=== PATIENT | male | born 1990 | race Caucasian/White ===

== ENCOUNTER 2017-07-15 18:04 | Observation (INO) | payer OTHER ==
[~2017-07-15] VITALS: Ht 175.3 cm; Wt 111.4 kg
[~2017-07-15 18:04] MED LIST: BUSP15TA PO; Benztropine PO; CYCL10TA PO; DEPA500T3 PO; IBUP-232 PO; QUET1TAB8 PO; RISP37.5P IM; TOPI100 PO; TRAZ50TA12 PO
[2017-07-15 18:05] VITALS: BP 121/75; PULSE 67; RESP 16; TEMP 98.5; O2SAT 99
[2017-07-15 18:47] LABS: AUTOMATED NEUTROPHIL # 4.1 TH/MM3 (1.8-7.7); BASOPHIL % 0.5 % (0.0-2.0); EOSINOPHIL # 0.1 TH/MM3 (0-0.4); EOSINOPHIL % 1.9 % (0.0-4.0); HEMATOCRIT 39.4 % (39.0-51.0); HEMOGLOBIN 13.6 GM/DL (13.0-17.0); LYMPHOCYTE # 1.9 TH/MM3 (1.0-4.8); MEAN CELL VOLUME 90.3 FL (80.0-100.0); MEAN CORPUSCULAR HEMOGLOBIN 31.2 PG (27.0-34.0); MEAN CORPUSCULAR HGB CONC 34.5 % (32.0-36.0); MEAN PLATELET VOLUME 7.9 FL (7.0-11.0); MONO % 5.7 % (0.0-8.0); MONOCYTE # 0.4 TH/MM3 (0-0.9); NEUT % 62.9 % (16.0-70.0); PLATELET COUNT 190 TH/MM3 (150-450); RED BLOOD COUNT 4.37 MIL/MM3 (4.50-5.90); RED CELL DISTRIBUTION WIDTH 14.1 % (11.6-17.2); WHITE BLOOD COUNT 6.6 TH/MM3 (4.0-11.0)
[2017-07-15 18:53] LABS: PROTHROMBIN TIME - PATIENT 10.3 SEC (9.8-11.6)
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
--- NOTE | 2017-07-15 18:59 | RADRPT ---
EXAM DATE/TIME: 07/15/2017 18:31 [facility] COMPARISON: No previous studies available for comparison. INDICATIONS : Dizziness with multiple falls for two weeks. RADIATION DOSE: 30.78 CTDIvol (mGy) MEDICAL HISTORY : Seizures.traumatic brain injury SURGICAL HISTORY : Craniotomy. ENCOUNTER: Initial ACUITY: 2 weeks PAIN SCALE: 4/10 LOCATION: Bilateral neck TECHNIQUE: Volumetric scanning of the cervical spine was performed. Multiplanar reconstructions in the sagittal, coronal and oblique axial planes were performed. Using automated exposure control and adjustment o f the mA and/or kV according to patient size, radiation dose was kept as low as reasonably achievable to obtain optimal diagnostic quality images. DICOM format image data is available electronically f or review and comparison. FINDINGS: VERTEBRAE: Normal vertebral body height. ALIGNMENT: No evidence of subluxation. C2-C3: The bony spinal canal is normal in size. No evidence of disc bulge or herniation. The neural forami na are bilaterally patent. C3-C4: The bony spinal canal is normal in size. No evidence of disc bulge or herniation. The neural forami na are bilaterally patent. C4-C5: The bony spinal canal is normal in size. No evidence of disc bulge or herniation. The neural forami na are bilaterally patent. C5-C6: The bony spinal canal is normal in size. No evidence of disc bulge or herniation. The neural forami na are bilaterally patent. C6-C7: The bony spinal canal is normal in size. No evidence of disc bulge or herniation. The neural forami na are bilaterally patent. C7-T1: The bony spinal canal is normal in size. No evidence of disc bulge or herniation. The neural forami na are bilaterally patent. CONCLUSION: No acute disease. Coleman Eastman Jr., MD on July 15, 2017 at 18:54 Board Certified Radiologist. This report was verified electronically.
[2017-07-15 19:11] LABS: ALBUMIN 4.1 GM/DL (3.4-5.0); ALT (GPT) 84 U/L (12-78); AST (GOT) 30 U/L (15-37); BICARBONATE 32.6 MEQ/L (21.0-32.0); BLOOD UREA NITROGEN 14 MG/DL (7-18); CALCIUM 8.5 MG/DL (8.5-10.1); CHLORIDE 104 MEQ/L (98-107); CREATININE 0.96 MG/DL (0.60-1.30); GLOMERULAR FILTRATION RATE 93 ML/MIN (>89); GLUCOSE,RANDOM 99 MG/DL (74-106); SODIUM (NA) 141 MEQ/L (136-145)
[2017-07-15 19:16] LABS: ALKALINE PHOSPHATASE 47 U/L (45-117); TOTAL BILIRUBIN ADULT 0.3 MG/DL (0.2-1.0); TOTAL PROTEIN 7.5 GM/DL (6.4-8.2); TROPONIN I LESS THAN 0.02 NG/ML (0.02-0.05)
[2017-07-15 19:20] VITALS: BP 102/56; PULSE 63; RESP 18; O2SAT 100
--- NOTE | 2017-07-15 19:22 | RADRPT ---
EXAM DATE/TIME: 07/15/2017 18:38 [facility] COMPARISON: CHEST PA & LAT, August 27, 2014, 16:22. INDICATIONS : Syncope. Patient is very dizzy. MEDICAL HISTORY : Seizures. Hypertension. SURGICAL HISTORY : Craniotomy. Shunt. ENCOUNTER: Initial ACUITY: 1 day PAIN SCORE: Non-responsive. LOCATION: Bilateral chest FINDINGS: PA and lateral views of the chest demonstrate the lungs to be symmetrically aerated without evidence of mass, infiltrate or effusion. The cardiomediastinal contours are unremarkable. Osseous structure s are intact. A catheter likely related to a POULTRY INSEMINATOR shunt overlies the right chest. CONCLUSION: No acute disease. Coleman Eastman Jr., MD on July 15, 2017 at 19:19 Board Certified Radiologist. This report was verified electronically.
--- NOTE | 2017-07-15 19:24 | RADRPT ---
EXAM DATE/TIME: 07/15/2017 18:42 [facility] COMPARISON: SHUNT SERIES, May 29, 2016, 19:09. INDICATIONS : Dizziness. MEDICAL HISTORY : Seizures. Hypertension. SURGICAL HISTORY : Craniotomy. Shunt. ENCOUNTER: Initial ACUITY: 1 day PAIN SCORE: Non-responsive. LOCATION: Body. FINDINGS: Radiograph of the skull, neck, chest and abdomen performed to evaluate shunt patency. The shunt cath eter is seen entering the right frontoparietal region with its tip in the midline The catheter is continuous in its course terminating in the right lateral abdomen No catheter disrupt ion is identified. The visualized heart, lungs and abdominal structures are intact. CONCLUSION: Intact shunt. Coleman Eastman Jr., MD on July 15, 2017 at 19:19 Board Certified Radiologist. This report was verified electronically.
[2017-07-15] MEDS ORDERED: BENZ0.5T PO (19:26)
[2017-07-15] MEDS ORDERED: PALI1TAB3 PO (19:26)
[2017-07-15] MEDS ORDERED: NOVOLOGP2 SQ (19:26)
[2017-07-15] MEDS ORDERED: LEVEMIR SQ (19:26)
[2017-07-15] MEDS ORDERED: IOHEXOL 300 MG/ML 50 ML BTL (for RAD DIAG) OTHER ONE (20:22)
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
[2017-07-15] MEDS ORDERED: SODIUM CHLORIDE 0.9% FLUSH 10 ML FLUSH IV FLUSH PRN (20:30)
[2017-07-15] MEDS ORDERED: NALOXONE HCL 0.4 MG/ML AMP IV PUSH PRN (20:30)
[2017-07-15] MEDS: SODIUM CHLORIDE 0.9% FLUSH 10 ML FLUSH IV FLUSH SCH (21:00)
[2017-07-15 21:46] VITALS: BP_SYST 119; BP_SYST 127; BP_SYST 128; BP_DIAS 70; BP_DIAS 81; BP_DIAS 89; RESP 18
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
[2017-07-15] MEDS: DIVALPROEX SODIUM E.R. 500 MG TAB PO SCH (23:23)
[2017-07-15] MEDS: BENZTROPINE MESYLATE 1 MG TAB PO SCH (23:23)
[2017-07-16] VITALS (8 sets, daily range): BP systolic 116–133; BP diastolic 66–83; PULSE 61–78; RESP 15–22; TEMP 96.4–97.4; O2SAT 96–100
[2017-07-16 01:35] LABS: BILIRUBIN, URINE NEG (NEG); BLOOD, URINE NEG (NEG); GLUCOSE,URINE NEG (NEG); KETONE, URINE NEG (NEG); MUCUS URINE FEW /lpf (OCC); NITRITE,URINE NEG (NEG); PH, URINE 6.5 (5.0-8.5); SQUAMOUS EPITHELIAL CELL URINE <1 /hpf (0-5); URINE COLOR YELLOW (YELLW/STRAW); URINE LEUKOCYTE ESTERASE NEG (NEG)
[2017-07-16 06:42] LABS: AUTOMATED NEUTROPHIL # 3.3 TH/MM3 (1.8-7.7); BASOPHIL % 0.7 % (0.0-2.0); BICARBONATE 26.9 MEQ/L (21.0-32.0); CALCIUM 8.4 MG/DL (8.5-10.1); CREATININE 0.82 MG/DL (0.60-1.30); EOSINOPHIL # 0.2 TH/MM3 (0-0.4); EOSINOPHIL % 3.3 % (0.0-4.0); HEMATOCRIT 38.6 % (39.0-51.0); HEMOGLOBIN 13.2 GM/DL (13.0-17.0); LYMPH % 35.9 % (9.0-44.0); LYMPHOCYTE # 2.3 TH/MM3 (1.0-4.8); MEAN CELL VOLUME 90.1 FL (80.0-100.0); MEAN CORPUSCULAR HEMOGLOBIN 30.8 PG (27.0-34.0); MEAN CORPUSCULAR HGB CONC 34.2 % (32.0-36.0); MEAN PLATELET VOLUME 7.8 FL (7.0-11.0); MONO % 7.4 % (0.0-8.0); MONOCYTE # 0.5 TH/MM3 (0-0.9); NEUT % 52.7 % (16.0-70.0); PLATELET COUNT 167 TH/MM3 (150-450); RED BLOOD COUNT 4.28 MIL/MM3 (4.50-5.90); RED CELL DISTRIBUTION WIDTH 14.2 % (11.6-17.2); WHITE BLOOD COUNT 6.3 TH/MM3 (4.0-11.0)
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
--- NOTE | 2017-07-16 10:12 | RADRPT ---
EXAM DATE/TIME: 07/16/2017 09:17 [facility] COMPARISON: CT BRAIN W/O CONTRAST, July 15, 2017, 18:31. INDICATIONS : Dizziness. Frequent falls. CONTRAST: 20 cc Omniscan (gadodiamide) IV MEDICAL HISTORY : Traumatic brain injury. SURGICAL HISTORY : Craniotomy. Codman shunt placement. ENCOUNTER: Initial ACUITY: 2 day PAIN SCORE: 0/10 LOCATION: head TECHNIQUE: Multiplanar, multisequence MRI of the brain was performed both prior to and following the administrat ion of paramagnetic contrast. FINDINGS: There is noted to be again a left craniotomy and a ventriculostomy in place via posterior right front al region. There is no evidence hydrocephalus. No evidence intracranial hemorrhage, extracerebral def ect mass or intracranial hemorrhage and no evidence of acute infarct. No diffusion abnormality is ronald reciated. Encephalomalacia is noted in the left hemisphere which is correlative with findings on rece nt CT scan as well as a small area in the anterior right parietal frontal region where in the ventric ulostomy catheter projects into the ventricle. Air-fluid level noted in the left maxillary sinus CONCLUSION: No acute intracranial abnormality or process. Air-fluid level noted in the left maxillary sinus consistent w ith sinusitis. Right ventriculostomy catheter in place without evidence of hydrocephalus. Prior remot e left craniotomy with encephalomalacia in the underlying left hemisphere Otis Eric MD on July 16, 2017 at 10:00 Board Certified Radiologist. This report was verified electronically.
[2017-07-16] MEDS: BENZTROPINE MESYLATE 1 MG TAB PO SCH ×3 (10:16→22:01)
[2017-07-16] MEDS: SODIUM CHLORIDE 0.9% FLUSH 10 ML FLUSH IV FLUSH SCH ×2 (10:17→21:47)
--- NOTE | 2017-07-16 11:17 | PD.CONS ---
(Foster Gomes MD) HPI Consult Requested By Primary Care Physician No Primary Care Physician (Foster Gomes MD) Service NRS History of Present Illness Mr. Burks is a 26-year-old male who comes today for gait instability and recurrent falls. The patient has a prior history of traumatic brain injury, hydrocephalus with a ventriculoperitoneal shunt. His shunt was last adjusted to 120 mm Hg in 2014. He presents to [facility] due to gait instability and recurrent falls. The patient reports his balance is not well. He reports of mild stable headaches. 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 A CT head shows no acute intracranial pathologies, no ventriculomegaly. MRI brain without evidence of acute infarction, chronic left encephalomalacia. A shunt study shows intact shunt. Neurosurgical evaluation requested. (Whitney Griffith) Review of Systems Constitutional: DENIES: Fever, Chills Ears, nose, mouth, throat: DENIES: Vertigo Respiratory: DENIES: Apneas Cardiovascular: DENIES: Chest pain Gastrointestinal: DENIES: Nausea, Vomiting Musculoskeletal: DENIES: Neck pain Neurologic: COMPLAINS OF: Abnormal gait, Headache (minimal), Poor Balance, DENIES: Seizures (Whitney Griffith) Past Family Social History Allergies: Coded Allergies: No Known Allergies (Verified , 12/04/16) Per [facility] RN. Physical Exam Vital Signs Vital Signs Date Time Temp Pulse Resp B/P (MAP) Pulse Ox O2 Delivery O2 Flow Rate FiO2 07/16/17 10:40 63 15 117/66 (83) 98 Room Air 07/16/17 06:28 65 18 126/76 (93) 100 Room Air 07/16/17 01:13 64 18 129/83 (98) 96 Room Air 07/15/17 21:46 62 18 119/70 (86) 80 18 128/81 (97) 79 18 127/89 (102) 07/15/17 19:20 63 18 102/56 (71) 100 Room Air 07/15/17 19:11 61 18 100 07/15/17 18:05 98.5 67 16 121/75 (90) 99 Physical Exam Mr. Burks is comfortable, in no obvious distress during examination. Neuro: Awake. Speech is slow but clear and fluent. Can follow single and multi- step commands without apraxia. Cranial nerve examination demonstrates the 2-3 mm pupils equal, round, and reactive to light. Right third nerve palsy. Facial motor and sensory function are normal and symmetrical. Gross hearing is intact, bilaterally, to finger rub. The uvula is midline and elevates symmetrically with the soft palate. Sternocleidomastoid and deltoid muscles have normal and symmetrical strength. HENT: Right GREEN TIRE INSPECTOR shunt palpated, intact with good bubble rebound. Hearing intact to finger rub bilaterally. Eyes: Pupils equal round. Nonicteric sclera. Neck: soft, supple, normal range of motion without pain Extremities No peripheral edema. 5/5 in all muscle groups of both upper extremities including deltoid, biceps, triceps and truck driver heavy. In the lower extremities, strength is 5/5 in both iliopsoas, quadriceps, hamstrings, tibialis anterior, gastrocnemius, and extensor hallucis longus. Sensory examination is intact pinprick in both the upper and lower extremities Deep tendon reflexes are 1+ biceps, triceps, and brachioradialis, bilaterally, in the upper extremities. In the lower extremities, the patellar and Achilles are 1+, bilaterally. There is a bilateral plantar flexion response. Hoffmanns sign is negative. There is no clonus. Cerebellar: grossly intact finger to nose bilaterally Lungs: clear, nonlabored breathing, no wheezing Heart: S1, S2 Skin: warm and dry, no cyanosis. Laboratory Laboratory Tests Test 07/15/17 18:11 07/15/17 18:20 07/15/17 19:28 07/16/17 06:06 Urine Color YELLOW Urine Turbidity CLEAR Urine pH 6.5 Urine Specific [place] 1.029 Urine Protein TRACE Urine Glucose (UA) NEG Urine Ketones NEG Urine Occult Blood NEG Urine Nitrite NEG Urine Bilirubin NEG Urine Urobilinogen LESS THAN 2.0 Urine Leukocyte Esterase NEG Urine RBC 2 Urine WBC 1 Urine Squamous Epithelial Cells <1 Urine Mucus FEW Microscopic Urinalysis Comment CULT NOT INDICATED White Blood Count 6.6 6.3 Red Blood Count 4.37 4.28 Hemoglobin 13.6 13.2 Hematocrit 39.4 38.6 Mean Corpuscular Volume 90.3 90.1 Mean Corpuscular Hemoglobin 31.2 30.8 Mean Corpuscular Hemoglobin Concent 34.5 34.2 Red Cell Distribution Width 14.1 14.2 Platelet Count 190 167 Mean Platelet Volume 7.9 7.8 Neutrophils (%) (Auto) 62.9 52.7 Lymphocytes (%) (Auto) 29.0 35.9 Monocytes (%) (Auto) 5.7 7.4 Eosinophils (%) (Auto) 1.9 3.3 Basophils (%) (Auto) 0.5 0.7 Neutrophils # (Auto) 4.1 3.3 Lymphocytes # (Auto) 1.9 2.3 Monocytes # (Auto) 0.4 0.5 Eosinophils # (Auto) 0.1 0.2 Basophils # (Auto) 0.0 0.0 CBC Comment DIFF FINAL DIFF FINAL Differential Comment Prothrombin Time 10.3 Prothromb Time International Ratio 1.0 Activated Partial Thromboplast Time 25.2 Blood Urea Nitrogen 14 14 Creatinine 0.96 0.82 Random Glucose 99 95 Total Protein 7.5 Albumin 4.1 Calcium Level 8.5 8.4 Magnesium Level 2.0 Alkaline Phosphatase 47 Aspartate Amino Transf (AST/SGOT) 30 Alanine Aminotransferase (ALT/SGPT) 84 Total Bilirubin 0.3 Sodium Level 141 139 Potassium Level 3.8 3.6 Chloride Level 104 106 Carbon Dioxide Level 32.6 26.9 Anion Gap 4 6 Estimat Glomerular Filtration Rate 93 112 Total Creatine Kinase 185 Creatine Kinase MB 1.9 Troponin I LESS THAN 0.02 Urine Opiates Screen NEG Urine Barbiturates Screen NEG Urine Amphetamines Screen NEG Urine Benzodiazepines Screen NEG Urine Cocaine Screen NEG Urine Cannabinoids Screen POS Erythrocyte Sedimentation Rate 14 Vitamin B12 Level 363 Thyroid Stimulating Hormone 3rd Gen 5.700 (Foster Gomes MD) Physical Exam General: Mr. Burks is comfortable, in no obvious distress during examination. Neuro: Awake. Speech is slow but clear and fluent. Slow but can follow single and multi-step commands. Cranial nerve examination demonstrates the 2-3 mm pupils equal, round, and reactive to light. Right third nerve palsy. Facial motor and sensory function are normal and symmetrical. Gross hearing is intact, bilaterally, to finger rub. The uvula is midline and elevates symmetrically with the soft palate. Sternocleidomastoid and deltoid muscles have normal and symmetrical strength. HENT: Right GREEN TIRE INSPECTOR shunt palpated, intact with good bubble rebound. Hearing intact to finger rub bilaterally. Eyes: Pupils equal round. Nonicteric sclera. Neck: soft, supple, normal range of motion without pain Extremities No peripheral edema. 4 to 5/5 deltoid, biceps, triceps and truck driver heavy. In the lower extremities, strength is 4 to 5/5 in both iliopsoas, quadriceps, hamstrings, tibialis anterior, gastrocnemius. Sensory examination is intact light touch in both the upper and lower extremities Deep tendon reflexes are 1+ biceps, triceps, and brachioradialis, bilaterally, in the upper extremities. In the lower extremities, the patellar and Achilles are 1+, bilaterally. There is a bilateral plantar flexion response. Hoffmanns sign is negative. There is no clonus. Cerebellar: grossly intact finger to nose bilaterally Lungs: clear, nonlabored breathing, no wheezing Heart: S1, S2 Skin: warm and dry, no cyanosis. (Whitney Griffith) Result Diagram: 07/16/17 0606 07/16/17 0606 Imaging Last 48 hours Impressions Shunt Study 07/16/17 0000 Signed Impressions: Service Date/Time: Sunday, July 16, 2017 15:09 - CONCLUSION: 1. The shunt appears patent proximally. There was passage of contrast through the valve and into the distal tubing as well suggesting distal patency. Joey Zuñiga MD Brain MRI 07/16/17 0000 Signed Impressions: Service Date/Time: Sunday, July 16, 2017 09:17 - CONCLUSION: No acute intracranial abnormality or process. Air-fluid level noted in the left maxillary sinus consistent with sinusitis. Right ventriculostomy catheter in place without evidence of hydrocephalus. Prior remote left craniotomy with encephalomalacia in the underlying left hemisphere Otis Eric MD Head CT 07/15/171810 Signed Impressions: Service Date/Time: Saturday, July 15, 2017 18:31 - CONCLUSION: 1. No acute intracranial abnormality. 2. Prior craniotomy with underlying encephalomalacia on the left. This is stable. 3. Ventriculostomy without hydrocephalus. 4. Acute left maxillary sinus disease. Coleman Eastman Jr., MD Chest X-Ray 07/15/171810 Signed Impressions: Service Date/Time: Saturday, July 15, 2017 18:38 - CONCLUSION: No acute disease. Coleman Eastman Jr., MD Cervical Spine CT 07/15/171810 Signed Impressions: Service Date/Time: Saturday, July 15, 2017 18:31 - CONCLUSION: No acute disease. Coleman Eastman Jr., MD Shunt Study (Imaging) 07/15/17 0000 Signed Impressions: Service Date/Time: Saturday, July 15, 2017 18:42 - CONCLUSION: Intact shunt. Coleman Eastman Jr., MD (Foster Gomes MD) Imaging Last Impressions Brain MRI 07/16/17 0000 Signed Impressions: Service Date/Time: Sunday, July 16, 2017 09:17 - CONCLUSION: No acute intracranial abnormality or process. Air-fluid level noted in the left maxillary sinus consistent with sinusitis. Right ventriculostomy catheter in place without evidence of hydrocephalus. Prior remote left craniotomy with encephalomalacia in the underlying left hemisphere Otis Eric MD Head CT 07/15/171810 Signed Impressions: Service Date/Time: Saturday, July 15, 2017 18:31 - CONCLUSION: 1. No acute intracranial abnormality. 2. Prior craniotomy with underlying encephalomalacia on the left. This is stable. 3. Ventriculostomy without hydrocephalus. 4. Acute left maxillary sinus disease. Coleman Eastman Jr., MD Chest X-Ray 07/15/171810 Signed Impressions: Service Date/Time: Saturday, July 15, 2017 18:38 - CONCLUSION: No acute disease. Coleman Eastman Jr., MD Cervical Spine CT 07/15/171810 Signed Impressions: Service Date/Time: Saturday, July 15, 2017 18:31 - CONCLUSION: No acute disease. Coleman Eastman Jr., MD Shunt Study (Imaging) 07/15/17 0000 Signed Impressions: Service Date/Time: Saturday, July 15, 2017 18:42 - CONCLUSION: Intact shunt. Coleman Eastman Jr., MD (Whitney Griffith) Attending Statement I reviewed his clinical and radiological studies. I recommend to perform a shuntogram, in procedures with injections of contrast into the ventricular system, to determine whether the shunt is patent. I would defer further recommendations to upon completion of his workup The exam, history, and the medical decision-making described in the above note were completed with the assistance of the mid-level provider. I reviewed and agree with the findings presented. I attest that I had a [id number] encounter with the patient on the same day, and personally performed and documented my assessment and findings in the medical record. (Foster Gomes MD) Using a [employer], the shunt was reprogrammed as follows: Ultrasound gel was placed over the valve and the transfuser was calibrated at a pressure of 110 mm/H20. The shunt was then reprogrammed and a visual and audible sound confirmed the new settings. The patient tolerated the procedure well without complication (Whitney Griffith) Foster Gomes MD Jul 16, 2017 11:17 Whitney Griffith Jul 16, 2017 13:22
--- NOTE | 2017-07-16 14:43 | EKG ---
Date Performed: 07/15/2017 Time Performed: 18:22:58 PTAGE: 26 years EKG: Sinus rhythm POSSIBLE RIGHT VENTRICULAR CONDUCTION DELAY BORDERLINE ECG Since PREVIOUS TRACING , no significant change noted PREVIOUS TRACIN12/06/2016 07.49 DOCTOR: Jeanne Santiago Interpretating Date/Time 07/16/2017 14:43:30
--- NOTE | 2017-07-16 15:35 | PD.RAD ---
Post Procedure Progress Note Pre Procedure Diagnosis: (1) Traumatic brain injury (2) S/P EXECUTIVE STEWARD shunt Post Procedure Diagnosis: (1) S/P EXECUTIVE STEWARD shunt (2) Traumatic brain injury Procedure Date: Jul 16, 2017 Supervising Radiologist: Joey Zuñiga Estimated blood loss: None Anesthesia: Local Plan of Activity Patient to Unit: Nursing Unit Patient Condition: Fair Additional Comments: EXECUTIVE STEWARD shunt eval completed. Shunt is paten proximally. Contrast was evident flowing past the valve and into the proximal tubing indicating patency. Ventricles are small in size See PACS Report for procedural detail/treatment Joey Zuñiga MD Jul 16, 2017 15:34
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
--- NOTE | 2017-07-16 16:58 | HHI.PR ---
Subjective Remarks Patient in bed. Seen lunch time.He is eatign lunch without any trouble. no cp, sob n/v/d/c. no dysphagia. Denies headache. Fells much better . Says he wants to go home Objective Vitals Vital Signs Date Time Temp Pulse Resp B/P (MAP) Pulse Ox O2 Delivery O2 Flow Rate FiO2 07/16/17 16:00 96.4 74 18 116/75 (89) 99 07/16/17 12:40 97.1 61 18 118/73 (88) 98 07/16/17 12:15 07/16/17 10:40 63 15 117/66 (83) 98 Room Air 07/16/17 06:28 65 18 126/76 (93) 100 Room Air 07/16/17 01:13 64 18 129/83 (98) 96 Room Air 07/15/17 21:46 62 18 119/70 (86) 80 18 128/81 (97) 79 18 127/89 (102) 07/15/17 19:20 63 18 102/56 (71) 100 Room Air 07/15/17 19:11 61 18 100 07/15/17 18:05 98.5 67 16 121/75 (90) 99 Result Diagram: 07/16/17 0606 07/16/17 0606 Imaging Last Impressions Shunt Study 07/16/17 0000 Signed Impressions: Service Date/Time: Sunday, July 16, 2017 15:09 - CONCLUSION: 1. The shunt appears patent proximally. There was passage of contrast through the valve and into the distal tubing as well suggesting distal patency. Joey Zuñiga MD Brain MRI 07/16/17 0000 Signed Impressions: Service Date/Time: Sunday, July 16, 2017 09:17 - CONCLUSION: No acute intracranial abnormality or process. Air-fluid level noted in the left maxillary sinus consistent with sinusitis. Right ventriculostomy catheter in place without evidence of hydrocephalus. Prior remote left craniotomy with encephalomalacia in the underlying left hemisphere Otis Eric MD Head CT 07/15/17 1811 Signed Impressions: Service Date/Time: Saturday, July 15, 2017 18:31 - CONCLUSION: 1. No acute intracranial abnormality. 2. Prior craniotomy with underlying encephalomalacia on the left. This is stable. 3. Ventriculostomy without hydrocephalus. 4. Acute left maxillary sinus disease. Coleman Eastman Jr., MD Chest X-Ray 07/15/171810 Signed Impressions: Service Date/Time: Saturday, July 15, 2017 18:38 - CONCLUSION: No acute disease. Coleman Eastman Jr., MD Cervical Spine CT 07/15/171810 Signed Impressions: Service Date/Time: Saturday, July 15, 2017 18:31 - CONCLUSION: No acute disease. Coleman Eastman Jr., MD Shunt Study (Imaging) 07/15/17 0000 Signed Impressions: Service Date/Time: Saturday, July 15, 2017 18:42 - CONCLUSION: Intact shunt. Coleman Eastman Jr., MD Objective Remarks GENERAL: This is a well-nourished, well-developed patient, in no apparent distress. CARDIOVASCULAR: Regular rate and rhythm without murmurs, gallops, or rubs. RESPIRATORY: Clear to auscultation. Breath sounds equal bilaterally. No wheezes , rales, or rhonchi. GASTROINTESTINAL: Abdomen soft, non-tender, nondistended. No hepato-splenomegaly , or palpable masses. No guarding. MUSCULOSKELETAL: Extremities without clubbing, cyanosis, or edema. No joint tenderness, effusion, or edema noted. No calf tenderness. NEUROLOGICAL: Awake and alert. Right upper and lower extremity weaker 4/5. Normal speech. A/P Problem List: (1) Traumatic brain injury ICD Code: S06.9X9A - Unspecified intracranial injury with loss of consciousness of unspecified duration, initial encounter Status: Acute (2) Impaired gait ICD Code: R26.9 - Unspecified abnormalities of gait and mobility Status: Acute Assessment and Plan 26 y/o male with a history of TBI with shunt placement, DM (not currently taking medication) and schizophrenia was brought in my his mom for evaluation of falls. Unsteady gait, recent falls, history of TBI CT head reviewed and shows no acute abnormality, no hydrocephalus Shunt series reviewed and shows intact shunt -Consult neurology appreciate recommendations. Can follow up as OP with neurology further work up can be done as OP imaging. Also seen by neurosurgery, cleared patient for DC -Neuro checks -PT eval Diabetes, chronic -Accu checks -A1C pending . DVT prophylaxis: SCDs Discussed Condition With Patient, nurse Tree shun is patent. PT recommends Rehab. DC to SNF when arrangements done Discharge Planning DC to SNF in stable condition to follow up as OP with PCP and consultants. Meds per med reconciliations Activity ad mariela as tolerated. Diet healthy heart and diabetic diet Discharge time > 30 min Tamela Olson MD Jul 16, 2017 16:58
--- NOTE | 2017-07-16 17:03 | HHI.DS ---
Discharge Summary Admission Date Jul 15, 2017 at 20:21 Discharge Date: Jul 16, 2017 Admitting Diagnosis unsteady gait, TBI (1) Traumatic brain injury ICD Code: S06.9X9A - Unspecified intracranial injury with loss of consciousness of unspecified duration, initial encounter Status: Acute (2) Impaired gait ICD Code: R26.9 - Unspecified abnormalities of gait and mobility Status: Acute Procedures none Brief History - From Admission 26 y/o male with a history of TBI with shunt placement, DM (not currently taking medication) and schizophrenia was brought in my his mom for evaluation of falls. Patient is unable to provide all his history and time line of events but does state his mom can. Mom states in March he was treated at [facility] for schizophrenia and was placed on Depakote, trazodone and Benztropine. He has been taking his medications as directed but at the end of May Mom noticed he was falling at least once a day, and now recently it has been more frequent. He was taking Invega and just recently started it back one week ago, after not taking it for 3 weeks. Mom states despite taking it or not he still was falling and having trouble ambulating. He has to hang on to bergman when walking, and he will fall to the right side when sitting on the couch , and this is new as of May. She also states he is more drowsier than he normally is. He does not complain of any other symptoms besides headaches, but states they are not any worse then normal. He denies any chest pain, sob, fever or chills. She does state that he wonders outside and falls but she is unsure if he has hit his head before. He does not see a PCP, or neurologist due to insurance issues and finding a dr who takes the insurance. Dr Gomes is the DR. who placed his shunt in 2011. As of March, Mom has taken over as his patient care manager and would like to be called for all questions due to patients mentation. Beth Burks [phone] CBC/BMP: 07/16/17 0606 07/16/17 0606 Significant Findings Laboratory Tests Test 07/15/17 18:11 07/15/17 18:20 07/15/17 19:28 07/16/17 06:06 Urine Mucus FEW /lpf (OCC) Red Blood Count 4.37 MIL/MM3 (4.50-5.90) 4.28 MIL/MM3 (4.50-5.90) Alanine Aminotransferase (ALT/SGPT) 84 U/L (12-78) Carbon Dioxide Level 32.6 MEQ/L (21.0-32.0) Anion Gap 4 MEQ/L (5-15) Troponin I LESS THAN 0.02 NG/ML Urine Cannabinoids Screen POS (NEG) Hematocrit 38.6 % (39.0-51.0) Calcium Level 8.4 MG/DL (8.5-10.1) Thyroid Stimulating Hormone 3rd Gen 5.700 uIU/ML (0.358-3.740) Imaging Last Impressions Shunt Study 07/16/17 0000 Signed Impressions: Service Date/Time: Sunday, July 16, 2017 15:09 - CONCLUSION: 1. The shunt appears patent proximally. There was passage of contrast through the valve and into the distal tubing as well suggesting distal patency. Joey Zuñiga MD Brain MRI 07/16/17 0000 Signed Impressions: Service Date/Time: Sunday, July 16, 2017 09:17 - CONCLUSION: No acute intracranial abnormality or process. Air-fluid level noted in the left maxillary sinus consistent with sinusitis. Right ventriculostomy catheter in place without evidence of hydrocephalus. Prior remote left craniotomy with encephalomalacia in the underlying left hemisphere Otis Eirc MD Head CT [id number]/15/171810 Signed Impressions: Service Date/Time: Saturday, July 15, 2017 18:31 - CONCLUSION: 1. No acute intracranial abnormality. 2. Prior craniotomy with underlying encephalomalacia on the left. This is stable. 3. Ventriculostomy without hydrocephalus. 4. Acute left maxillary sinus disease. Coleman Eastman Jr., MD Chest X-Ray [id number]/15/171810 Signed Impressions: Service Date/Time: Saturday, July 15, 2017 18:38 - CONCLUSION: No acute disease. Coleman Eastman Jr., MD Cervical Spine CT 07/15/171810 Signed Impressions: Service Date/Time: Saturday, July 15, 2017 18:31 - CONCLUSION: No acute disease. Coleman Eastman Jr., MD Shunt Study (Imaging) 07/15/17 0000 Signed Impressions: Service Date/Time: Saturday, July 15, 2017 18:42 - CONCLUSION: Intact shunt. Coleman Eastman Jr., MD PE at Discharge GENERAL: This is a well-nourished, well-developed patient, in no apparent distress. CARDIOVASCULAR: Regular rate and rhythm without murmurs, gallops, or rubs. RESPIRATORY: Clear to auscultation. Breath sounds equal bilaterally. No wheezes , rales, or rhonchi. GASTROINTESTINAL: Abdomen soft, non-tender, nondistended. No hepato-splenomegaly , or palpable masses. No guarding. MUSCULOSKELETAL: Extremities without clubbing, cyanosis, or edema. No joint tenderness, effusion, or edema noted. No calf tenderness. NEUROLOGICAL: Awake and alert. Right upper and lower extremity weaker 4/5. Normal speech. Hospital Course 26 y/o male with a history of TBI with shunt placement, DM (not currently taking medication) and schizophrenia was brought in my his mom for evaluation of falls. Unsteady gait, recent falls, history of TBI CT head reviewed and shows no acute abnormality, no hydrocephalus Shunt series reviewed and shows intact shunt -Consult neurology appreciate recommendations. Can follow up as OP with neurology further work up can be done as OP imaging. Also seen by neurosurgery, cleared patient for DC -Neuro checks -PT eval Diabetes, chronic -Accu checks -A1C pending . DVT prophylaxis: SCDs Discussed Condition With Patient, nurse Improved, shunt is patent. PT recommends Rehab. DC to SNF in stable condition to follow up as OP with PCP and consultants. Pt Condition on Discharge: Stable Discharge Disposition: Discharge to SNF Discharge Time: > 30 minutes Discharge Instructions DIET: Follow Instructions for: Heart Healthy Diet, Diabetic Diet Activities you can perform: Regular-No Restrictions Follow up Referrals: Neurology - 1 Week with Janes Diaz MD Neurosurgery - 2 Weeks with Foster Gomes MD PCP Follow-up - 2-3 Days Continued Medications: Benztropine (Benztropine) 0.5 Mg Tab 1 MG PO BID, #60 TAB 0 Refills Divalproex ER (Depakote ER) 500 Mg Nirmala 500 MG PO 2 po qhs, #60 TAB Ibuprofen (Ibuprofen) 600 Mg Tab 600 MG PO Q6H PRN for PAIN for 10 Days, TAB 0 Refills Insulin Aspart Inj (Novolog Inj) 1,000 Unit/10 Ml Vial 0 SQ DIRECTED for Blood Sugar Management, #10 ML 0 Refills Sliding Scale as directed. Insulin Detemir Inj (Levemir Inj) 1,000 unit/ 10 ML Vial 10 UNITS SQ HS for Blood Sugar Management, VIAL 0 Refills Do not mix with any other Insulin. Paliperidone ER (Paliperidone ER) 6 Mg Tab 6 MG PO DAILY for Schizophrenia, #30 TAB 0 Refills Trazodone (Trazodone) 50 Mg Tab 100 MG PO HS PRN for SLEEP, #30 TAB 0 Refills Tamela Olson MD Jul 16, 2017 17:03
[2017-07-16 17:56] LABS: HEMOGLOBIN A1C 5.6 % (4.3-6.0)
--- NOTE | 2017-07-16 18:55 | MG ---
cc: ELIGIO BROOKE MD Lab No: [id number] Date: 07/16/17 Age: Sex: M Race: Encephalopathy, left craniotomy, encephalomalacia in the left side, traumatic brain injury. Depmargaritate Dann There is what I would says an attenuation on the right side compared to the left. There is some 9 Hz which may be rhythms seen on the left hemisphere which may be a breach type rhythm, since the right hemisphere is more attenuated. Stimulation was performed without significant posterior driving. Apparently what I see is a breach rhythm on the right hemisphere and no focal epileptiform or seizure activity is seen coming out of the right hemisphere. MD SHAHZAD RossM/ /6:22 PM /6:44 PM
[2017-07-16] MEDS ORDERED: GADODIAMIDE PF 287 MG/ML 20 ML VIAL (for RAD MRI) IV PUSH ONE (20:22)
[2017-07-16] MEDS: DIVALPROEX SODIUM E.R. 500 MG TAB PO SCH (21:49)
[2017-07-17 05:23] VITALS: BP 114/66; PULSE 61; RESP 18; TEMP 98.3; O2SAT 95
[2017-07-17 07:20] VITALS: BP 111/58; PULSE 62; RESP 18; TEMP 98.5; O2SAT 97
[2017-07-17 10:25] VITALS: PULSE 67
[2017-07-17] MEDS: BENZTROPINE MESYLATE 1 MG TAB PO SCH ×2 (10:59→20:37)
[2017-07-17] MEDS: SODIUM CHLORIDE 0.9% FLUSH 10 ML FLUSH IV FLUSH SCH ×3 (10:59→20:39)
--- NOTE | 2017-07-17 11:15 | HHI.PR ---
Subjective Remarks In the heat is awake and alert. Responding appropriately to questions. He appears in not acute distress. Denies vision, new motor deficit. Chest pain or shortness of breath. She, vomiting, diarrhea or constipation. Eating well. Objective Vitals Vital Signs Date Time Temp Pulse Resp B/P (MAP) Pulse Ox O2 Delivery O2 Flow Rate FiO2 07/17/17 07:20 98.5 62 18 111/58 (75) 97 07/17/17 05:23 98.3 61 18 114/66 (82) 95 07/16/17 21:56 97.4 78 22 123/78 (93) 96 127/71 (89) 133/74 (93) 07/16/17 20:54 67 07/16/17 16:00 96.4 74 18 116/75 (89) 99 07/16/17 12:40 97.1 61 18 118/73 (88) 98 07/16/17 12:15 I/O 07/16/17 07/16/17 07/16/17 07/17/17 07/17/17 07/17/17 07:00 15:00 23:00 07:00 15:00 23:00 Intake Total 960 ml 480 ml Output Total 300 ml Balance 960 ml 180 ml Intake Oral 960 ml 480 ml Output Urine Total 300 ml # Voids 2 # Bowel Movements 0 Result Diagram: 07/16/17 0606 07/16/17 0606 Imaging Last Impressions Shunt Study 07/16/17 0000 Signed Impressions: Service Date/Time: Sunday, July 16, 2017 15:09 - CONCLUSION: 1. The shunt appears patent proximally. There was passage of contrast through the valve and into the distal tubing as well suggesting distal patency. Joey Zuñiga MD Brain MRI 07/16/17 0000 Signed Impressions: Service Date/Time: Sunday, July 16, 2017 09:17 - CONCLUSION: No acute intracranial abnormality or process. Air-fluid level noted in the left maxillary sinus consistent with sinusitis. Right ventriculostomy catheter in place without evidence of hydrocephalus. Prior remote left craniotomy with encephalomalacia in the underlying left hemisphere Otis Eric MD Head CT 07/15/17 1811 Signed Impressions: Service Date/Time: Saturday, July 15, 2017 18:31 - CONCLUSION: 1. No acute intracranial abnormality. 2. Prior craniotomy with underlying encephalomalacia on the left. This is stable. 3. Ventriculostomy without hydrocephalus. 4. Acute left maxillary sinus disease. Coleman Eastman Jr., MD Chest X-Ray 07/15/171810 Signed Impressions: Service Date/Time: Saturday, July 15, 2017 18:38 - CONCLUSION: No acute disease. Coleman Eastman Jr., MD Cervical Spine CT 07/15/171810 Signed Impressions: Service Date/Time: Saturday, July 15, 2017 18:31 - CONCLUSION: No acute disease. Coleman Eastman Jr., MD Shunt Study (Imaging) 07/15/17 0000 Signed Impressions: Service Date/Time: Saturday, July 15, 2017 18:42 - CONCLUSION: Intact shunt. Coleman Eastman Jr., MD Objective Remarks GENERAL: This is a well-nourished, well-developed patient, in no apparent distress. CARDIOVASCULAR: Regular rate and rhythm without murmurs, gallops, or rubs. RESPIRATORY: Clear to auscultation. Breath sounds equal bilaterally. No wheezes , rales, or rhonchi. GASTROINTESTINAL: Abdomen soft, non-tender, nondistended. No hepato-splenomegaly , or palpable masses. No guarding. MUSCULOSKELETAL: Extremities without clubbing, cyanosis, or edema. No joint tenderness, effusion, or edema noted. No calf tenderness. NEUROLOGICAL: Awake and alert. Right upper and lower extremity weaker 4/5. Normal speech. Procedures none A/P Problem List: (1) Traumatic brain injury ICD Code: S06.9X9A - Unspecified intracranial injury with loss of consciousness of unspecified duration, initial encounter Status: Acute (2) Impaired gait ICD Code: R26.9 - Unspecified abnormalities of gait and mobility Status: Acute Assessment and Plan 26 y/o male with a history of TBI with shunt placement, DM (not currently taking medication) and schizophrenia was brought in my his mom for evaluation of falls. Unsteady gait, recent falls, history of TBI CT head reviewed and shows no acute abnormality, no hydrocephalus Shunt series reviewed and shows intact shunt -Consult neurology appreciate recommendations. Can follow up as OP with neurology further work up can be done as OP imaging. Also seen by neurosurgery, cleared patient for DC -Neuro checks -PT eval Diabetes, chronic -Accu checks -A1C pending . DVT prophylaxis: SCDs Discussed Condition With Patient, nurse Tree laird is patent. PT recommends Rehab. DC to SNF when arrangements done Discharge Planning DC to SNF in stable condition to follow up as OP with PCP and consultants. Meds per med reconciliations Activity ad mariela as tolerated. Diet healthy heart and diabetic diet Discharge time > 30 min Tamela Olson MD Jul 17, 2017 11:15
[2017-07-17 11:21] VITALS: BP 128/79; PULSE 65; RESP 18; TEMP 98.7; O2SAT 97
[2017-07-17 15:18] VITALS: BP 145/85; PULSE 78; RESP 18; TEMP 98; O2SAT 97
[2017-07-17 20:18] VITALS: BP_SYST 120; BP_SYST 123; BP_SYST 124; BP_DIAS 72; BP_DIAS 76; PULSE 71; RESP 18; TEMP 98.5; O2SAT 96
[2017-07-17] MEDS: DIVALPROEX SODIUM E.R. 500 MG TAB PO SCH (20:37)
[2017-07-18 08:00] VITALS: BP 120/78; PULSE 72; RESP 18; TEMP 98.5; O2SAT 95
== END 2017-07-18 11:06 | disposition left against medical advice (07) ==
LOC: NEPE 18:04 → NEDA 20:21 → NEDH 07-16 00:21 → NEPGCP 07-16 12:23
PROVIDERS: ADMIT Hospitalist; ATTEND Hospitalist
DX: R26.81 Unsteadiness on feet (principal); Z87.820 Personal history of traumatic brain injury; E11.9 Type 2 diabetes mellitus without complications; I10 Essential (primary) hypertension; G93.89 Other specified disorders of brain; R55 Syncope and collapse; H49.00 Third [oculomotor] nerve palsy, unspecified eye; R29.6 Repeated falls; R56.9 Unspecified convulsions; G44.309 Post-traumatic headache, unspecified, not intractable; F17.200 Nicotine dependence, unspecified, uncomplicated; F20.9 Schizophrenia, unspecified; F02.80 Dementia in other diseases classified elsewhere, unspecified severity, without behavioral disturbance, psychotic disturbance, mood disturbance, and anxiety; Z98.2 Presence of cerebrospinal fluid drainage device; Z79.4 Long term (current) use of insulin
CPT/HCPCS: 61070; 70250; 70450; 70553; 71045; 71046; 72040; 72125; 74018; 75809; 80048; 80053; 80307; 81001; 82550; 82552; 82607; 82948; 83036; 83735; 84443; 84484; 85025; 85610; 85652; 85730; 93005; 95819; 97110; 97116; 97161; 99285; A9579; G0378; G8987; G8988; Q9967

== ENCOUNTER 2017-08-18 19:22 | Emergency (ER) | payer OTHER ==
[~2017-08-18] VITALS: Ht 152.4 cm; Wt 108.0 kg
[~2017-08-18 19:22] MED LIST changes: +BENZ0.5T PO; -BUSP15TA PO; -Benztropine PO; -CYCL10TA PO; +LEVEMIR SQ; +NOVOLOGP2 SQ; +PALI1TAB3 PO; -QUET1TAB8 PO; -RISP37.5P IM; -TOPI100 PO
[2017-08-18 19:24] VITALS: BP 161/97; PULSE 100; RESP 16; TEMP 98.6; O2SAT 98
[2017-08-18] MEDS ORDERED: AMOXICILLIN/CLAVULANATE K 875 MG TAB PO ONE (20:15)
[2017-08-18] MEDS ORDERED: TETANUS/DIPHTHERIA TOXOID ADULT 0.5 ML VIAL IM ONE (20:15)
[2017-08-18] MEDS ORDERED: LIDOCAINE 1%/EPINEPHrine 1:100,000 SOLN 20 ML VIAL INFIL ONE (20:15)
[2017-08-18] MEDS ORDERED: AUGM875T3 PO (20:18)
--- NOTE | 2017-08-18 20:20 | PD ---
HPI Chief Complaint: Bite or Sting Time Seen by Provider: 20:01 Travel History International Travel<30 days: No Contact w/Intl Traveler<30days: No Traveled to known affect area: No History of Present Illness HPI 27-year-old male complains of dog bite to the face. Patient states that he was playing with the dog and the dog accidentally bit her on the face. Patient states the dog is up-to-date with immunization. Patient is not up-to-date with TD booster. Patient states that he was bleeding on the right side of face, the right upper lip and the right side of the nose. Patient denies any other injury. Patient has history of TBI in the past. PFSH Past Medical History Hx Anticoagulant Therapy: No Autoimmune Disease: No Blood Disorders: No Anxiety: Yes Depression: No Heart Rhythm Problems: No Cancer: No Cardiovascular Problems: No High Cholesterol: No Chemotherapy: No Chest Pain: No Congestive Heart Failure: No Cerebrovascular Accident: No Diabetes: Yes Patient Takes Glucophage: No Endocrine: No Gastrointestinal Disorders: No Genitourinary: No Hypertension: Yes (Hx HTN) Immune Disorder: No Implanted Vascular Access Dvce: No Musculoskeletal: No Neurologic: Yes (Traumatic Brain Injury) Psychiatric: No Reproductive: No Respiratory: No Immunizations Current: Yes Schizophrenia: Yes Seizures: Yes Thyroid Disease: No Tetanus Vaccination: Unknown Influenza Vaccination: No LMP: 9 Past Surgical History Abdominal Surgery: No Cardiac Surgery: No Ear Surgery: No Endocrine Surgery: No Eye Surgery: No Genitourinary Surgery: No Pacemaker: No Thoracic Surgery: No Other Surgery: Yes (trach, g-tube both reversed; craini shunt) Social History Alcohol Use: No Tobacco Use: Yes (1 PPD) Substance Use: No (Pt denies use) Allergies-Medications (Allergen,Severity, Reaction): Coded Allergies: No Known Allergies (Verified Adverse Reaction, Unknown, 08/18/17) Per [facility] RN. Reported Meds & Prescriptions Reported Meds & Active Scripts Active Depakote ER (Divalproex Sodium) 500 Mg Nirmala 500 Mg PO 2 PO QHS Reported Novolog Inj (Insulin Aspart) 1,000 Unit/10 Ml Vial 0 SQ DIRECTED Sliding Scale as directed. Levemir Inj (Insulin Detemir) 1,000 unit/ 10 ML Vial 10 Units SQ HS Do not mix with any other Insulin. Benztropine (Benztropine Mesylate) 0.5 Mg Tab 1 Mg PO BID Paliperidone ER 6 Mg Tab 6 Mg PO DAILY Trazodone (Trazodone HCl) 50 Mg Tab 100 Mg PO HS PRN Review of Systems General / Constitutional: No: Fever Eyes: No: Visual changes HENT: No: Headaches Cardiovascular: No: Chest Pain or Discomfort Respiratory: No: Shortness of Breath Gastrointestinal: No: Abdominal Pain Genitourinary: No: Dysuria Musculoskeletal: No: Pain Skin: No Rash Neurologic: No: Weakness Psychiatric: No: Depression Endocrine: No: Polydipsia Hematologic/Lymphatic: No: Easy Bruising Physical Exam Narrative GENERAL: Well-nourished, well-developed patient. SKIN: Focused skin assessment warm/dry. HEAD: Normocephalic. EYES: No scleral icterus. No injection or drainage. NECK: Supple, trachea midline. No JVD or lymphadenopathy. CARDIOVASCULAR: Regular rate and rhythm without murmurs, gallops, or rubs. RESPIRATORY: Breath sounds equal bilaterally. No accessory muscle use. GASTROINTESTINAL: Abdomen soft, non-tender, nondistended. MUSCULOSKELETAL: No cyanosis, or edema. BACK: Nontender without obvious deformity. No CVA tenderness. Patient has a small 1 cm superficial laceration right cheek area. No active bleeding. Patient has 0.5 cm abrasion mucous membrane inside the right side of the nose. No active bleeding. Old blood noted in the right side of the nose. Patient has 1 cm laceration to the mucous membrane inside the right upper lip. No active bleeding. Mild soft tissue swelling noted. Data Data Last Documented VS Vital Signs Date Time Temp Pulse Resp B/P (MAP) Pulse Ox O2 Delivery O2 Flow Rate FiO2 08/18/17 19:24 98.6 100 16 161/97 (118) 98 Orders Orders Tetanus/Diphtheria Tox Adult (Tetanus/Di (08/18/17 20:15) Lidocai-Epi 1%-1:100,000 Inj (Xylocaine- (08/18/17 20:15) Amoxicil-Clavulanate (Augmentin) (08/18/17 20:15) MDM Medical Decision Making Medical Screen Exam Complete: Yes Emergency Medical Condition: Yes Differential Diagnosis Differential diagnosis including laceration. Narrative Course 27-year-old male with lacerations to the face and upper lip and abrasion to right side the nose secondary to dog bites. TD booster given. Augmentin 875 one tablet by mouth given. Diagnosis Primary Impression: Lip laceration Qualified Codes: S01.511A - Laceration without foreign body of lip, initial encounter Additional Impression: Facial laceration Qualified Codes: S01.81XA - Laceration without foreign body of other part of head, initial encounter Patient Instructions: General Instructions Additional Instructions: Wound care daily. Augmentin as directed. Follow-up with personal physician. Return if any sign of infection. Med/Other Pt SpecificInfo: Prescription(s) given Scripts Amoxicillin-Clavulanate (Augmentin) 875-125 Mg Tab 1 TAB PO BID for Infection, #10 TAB 0 Refills Prov: Herberth Jimenez MD 08/18/17 Disposition: 01 DISCHARGE HOME Condition: Stable Herberth Jimenez MD Aug 18, 2017 20:20
--- NOTE | 2017-08-18 20:36 | PD ---
Physical Exam Date Seen by Provider: Aug 18, 2017 Time Seen by Provider: 20:33 Narrative I was asked to see this 27-year-old male who was bitten the face by a dog for a laceration to the upper right medial inner lip. Please see my procedure note. Data Data Last Documented VS Vital Signs Date Time Temp Pulse Resp B/P (MAP) Pulse Ox O2 Delivery O2 Flow Rate FiO2 08/18/17 19:24 98.6 100 16 161/97 (118) 98 Orders Orders Tetanus/Diphtheria Tox Adult (Tetanus/Di (08/18/17 20:15) Lidocai-Epi 1%-1:100,000 Inj (Xylocaine- (08/18/17 20:15) Amoxicil-Clavulanate (Augmentin) (08/18/17 20:15) Ed Discharge Order (08/18/17 20:22) [facility] Medical Record Reviewed: Yes Supervised Visit with LISETTE: Yes Procedures Procedure Narrative LACERATION LOCATION: Upper right medial inner lip, not crossing the vermilion border. LENGTH: 1 cm NUMBER OF STITCHES/LURDES: 2 simple interrupted REPAIR: The area of the laceration was prepped with Betadine and sterilely draped. The laceration was infiltrated with 3 mL's 2% lidocaine with with epi. The wound was copiously irrigated and explored without evidence of foreign body, tendon injury or neurovascular injury. The wound was closed using 5-0 Vicryl. This was a single layer repair. The patient was advised to keep the area clean and dry. Patient tolerated the procedure well. Diagnosis Primary Impression: Lip laceration Qualified Codes: S01.511A - Laceration without foreign body of lip, initial encounter Additional Impression: Facial laceration Qualified Codes: S01.81XA - Laceration without foreign body of other part of head, initial encounter Patient Instructions: General Instructions Additional Instruction: Wound care daily. Augmentin as directed. Follow-up with personal physician. Return if any sign of infection. Scripts Amoxicillin-Clavulanate (Augmentin) 875-125 Mg Tab 1 TAB PO BID for Infection, #10 TAB 0 Refills Prov: Herberth Jimenez MD 08/18/17 Disposition: 01 DISCHARGE HOME Condition: Stable Zain Vick Aug 18, 2017 20:36
== END 2017-08-18 21:07 | disposition home or self-care (01) ==
LOC: NEPD 19:22
DX: S01.551A Open bite of lip, initial encounter (principal); S01.85XA Open bite of other part of head, initial encounter; E11.9 Type 2 diabetes mellitus without complications; F17.200 Nicotine dependence, unspecified, uncomplicated; W54.0XXA Bitten by dog, initial encounter; Z23 Encounter for immunization; Z79.4 Long term (current) use of insulin
CPT/HCPCS: 12011; 90471; 90714

== ENCOUNTER 2018-06-14 19:03 | Observation (INO) ==
--- NOTE | 2018-06-14 20:07 | ED ---
HPI General Chief complaint: Weakness Stated complaint: gen weakness Time Seen by Provider: 06/14/18 19:36 History of Present Illness HPI Narrative: Patient is a 27 YOM with hx TBI. Patient was [place] [facility] [place] with left SAH and subsequent decompressive craniectomy and METAL CASTING TRADES WORKER shunt. Patient has been in rehab and had home PT and OT until recently when mother states he has been to drowsy to participate. Mother stopped his medications Abilify and Depakote 6 weeks ago hoping this would resolve. According to patient 's mother he remains sleepy and unengaged. He is also now not able to walk when he was previously. Patient has not had F/U with neurology due to insurance issues. Mother brings him in for evaluation due to his decline in function. Patient unable to give much history. he will follow commands and answer some, but not all questions. Difficult to ascertain patient's baseline as mother is very upset and just keeps stating "he's not right". Related Data Home Medications Medication Instructions Recorded Confirmed aripiprazole [Abilify] 10 mg PO DAILY 02/08/18 06/14/18 buspirone 10 mg PO BID 02/08/18 06/14/18 divalproex [Depakote] 1,000 mg PO HS 02/08/18 06/14/18 trazodone 100 mg PO HS 02/08/18 06/14/18 Allergies Allergy/AdvReac Type Severity Reaction Status Date / Time No Known Allergies Allergy Verified 06/14/18 19:23 Review of Systems ROS: all other systems reviewed are negative [facility] Medical History Medical History Depression (Acute) History of gastrostomy tube placement (Acute) Mood disorder (Acute) TBI (traumatic brain injury) (Acute) Surgical History Surgical History Hx of craniotomy (Acute) Hx of tracheostomy (Acute) Hx of ventricular shunt (Acute) Social History Social History Substance History: No History of Abuse Second Hand Smoke Exposure: No Smoking Status: Never smoker How Often Do You Have a Drink Containing Alcohol: Never Recent Travel in [facility] within the Last 8 Weeks: No Recent Out of Country Travel within the Last 8 Weeks: No Immunization History Tetanus Immunization: Unsure Exam Narrative Exam Narrative: GENERAL: alert, male in NAD. SKIN: Focused skin assessment warm/dry.large area of ecchymosis on left back HEAD: Atraumatic. Normocephalic. EYES: Pupils equal and round. No scleral icterus. No injection or drainage. EOMs intact ENT: No nasal bleeding or discharge. Mucous membranes pink and moist. NECK: Trachea midline. No JVD. CARDIOVASCULAR: Regular rate and rhythm. No murmur appreciated. RESPIRATORY: No accessory muscle use. Clear to auscultation. Breath sounds equal bilaterally. GASTROINTESTINAL: Abdomen soft, non-tender, nondistended. Hepatic and splenic margins not palpable. MUSCULOSKELETAL: No obvious deformities. No clubbing. No cyanosis. No edema. NEUROLOGICAL: Awake and alert. CLARK to command. Follow verbal commands. Motor grossly within normal limits.MS 4/5 BUE and BLE. Distorted speech but understandable. Course Initial Documented Vital Signs Temperature 98.7 F 06/14/18 19:24 Pulse Rate 80 06/14/18 19:24 Respiratory Rate 20 06/14/18 19:24 Blood Pressure 135/86 06/14/18 19:24 Pulse Oximetry 96 06/14/18 19:24 Last Documented Vital Signs Temperature 98.7 F 06/14/18 19:24 Pulse Rate 80 06/14/18 19:24 Respiratory Rate 20 06/14/18 19:24 Blood Pressure 135/86 06/14/18 19:24 Pulse Oximetry 98 06/14/18 20:50 Medical Decision Making LISETTE Attestation LISETTE supervised visit: Yes Attestation: I, Dr. Jimenez, have reviewed the advance practice practitioner's documentation and am in agreement, met with the patient face to face, made the diagnosis, and the medical decision making was done by me. *My assessment and Findings: Progressing weakness. Unable to ambulate. History of TBI status post shunt placement. [facility] Narrative Medical decision making narrative: Patient is a 27-year-old male with a history of traumatic brain injury in 2011. His mother brings him today with complaints of progressive weakness and lethargy. He has had little follow-up with neurology since his accident. She took him off his medication, Abilify and Depakote, hoping to improve the drowsiness. She states he has had no effect and he is not to the point where he cannot even walk. Mother states he hasn't been able to walk normally for about a year but recently it is much worse. CT brain/shunt series/labs all unremarkable. Discussed with Dr. Jimenez who feels patient should be admitted for neuro and PT eval given he can't walk and mother cannot care for him. 21:[address] Anton 22:[address] Anton 22:13 page returned. Discussed exam and findings with Dr. Anton. Accepts admission for observation. Medical Screen Exam Complete: Yes Emergency Medical Condition: Yes Differential Diagnosis Differential Diagnosis: Intracranial bleed/shunt malfunction/progressive weakness Lab Data Result diagrams: 06/14/18 20:00 06/14/18 20:00 Lab Results 06/14/18 06/14/18 06/14/18 Range/Units 20:00 20:00 20:35 WBC 8.0 (4.0-11.0) th/mm3 RBC 4.77 (4.50-5.90) mil/mm3 Hgb 14.8 (13.0-17.0) gm/dL Hct 42.2 (39.0-51.0) % MCV 88.4 (80.0-100.0) fL MCH 31.1 (27.0-34.0) pg MCHC 35.2 (32.0-36.0) % RDW 13.7 (11.6-17.2) % Plt Count 175 (150-450) th/mm3 MPV 8.1 (7.0-11.0) fL Neut % (Auto) 65.1 (16.0-70.0) % Lymph % (Auto) 26.1 (9.0-44.0) % Ellis % (Auto) 6.6 (0.0-8.0) % Eos % (Auto) 1.6 (0.0-4.0) % Baso % (Auto) 0.6 (0.0-2.0) % Neut # (Auto) 5.2 (1.8-7.7) th/mm3 Lymph # (Auto) 2.1 (1.0-4.8) th/mm3 Ellis # (Auto) 0.5 (0.0-0.9) th/mm3 Eos # (Auto) 0.1 (0.0-0.4) th/mm3 Baso # (Auto) 0.0 (0.0-0.2) th/mm3 WBC Differential . Differential Comment Auto diff final Sodium 142 (136-145) meq/L Potassium 3.8 (3.5-5.1) meq/L Chloride 108 H (98-107) meq/L Carbon Dioxide 27.5 (21.0-32.0) meq/L Anion Gap 7 (5-15) meq/L BUN 10 (7-18) mg/dL Creatinine 1.14 (0.60-1.30) mg/dL Estimated GFR 76 L (>89) mL/min Random Glucose 86 (74-106) mg/dL Calcium 8.5 (8.5-10.1) mg/dL Magnesium 2.2 (1.5-2.5) mg/dL Total Bilirubin 0.7 (0.2-1.0) mg/dL AST 39 H (15-37) U/L ALT 91 H (12-78) U/L Alkaline Phosphatase 47 (45-117) U/L Lactate Dehydrogenase 244 H (87-241) U/L Troponin I Less than 0.02 L (0.02-0.05) ng/mL Total Protein 7.6 (6.4-8.2) g/dL Albumin 4.0 (3.4-5.0) g/dL Urine Color Yellow (Yellw/Straw) Urine Clarity Clear (Clear) Urine pH 6.0 (5.0-8.5) Ur Specific [place] 1.015 (1.002-1.035) Urine Protein Negative (Neg-Trace) mg/dL Urine Glucose (UA) Negative (Negative) mg/dL Urine Ketones Trace H (Negative) mg/dL Urine Occult Blood Negative (Negative) Urine Nitrate Negative (Negative) Urine Bilirubin Negative (Negative) Urine Urobilinogen 0.2 (Less than 2) mg/dL Ur Leukocyte Esterase Negative (Negative) Urine RBC Less than 1 (0-3) /hpf Urine WBC 1 (0-5) /hpf Urine Mucus Few H (Occasional) /lpf Micro UA Comment Culture not ind Ur Microscopic Review Not Reportable Urine Culture Comments Culture not ind Imaging Data Radiologist's impression: Head CT 06/14/18 19:51 CONCLUSION: Stable chronic changes without acute hemorrhage or mass effect. Shunt Study 06/14/18 19:54 CONCLUSION: The METAL CASTING TRADES WORKER shunt appears grossly intact and on the frontal projection there is apparent discontinuation of the shunt which is probably artifactually created since it appears intact on the lateral projection. Discharge Plan Discharge Disposition Patient Disposition: ED Admit(ED Internal Use Only) Discharge Order Discharge Orders: ED Use Only Admit Order (Routine); Ordered 06/14/18 Ordered By: Ashanti Oleary Discharge Details Diagnosis: Weakness, Unable to ambulate Physicians Team ED Provider: Herberth Jimenez ED Midlevel Provider: Ashanti Oleary Primary Care Provider: Primary Care Pepper Marks Attending Provider: Lynette Anton Status ED Status: Admitted Observation Patient
[2018-06-14 20:13] LABS: Baso % (Auto) 0.6 % (0.0-2.0); Eos # (Auto) 0.1 th/mm3 (0.0-0.4); Eos % (Auto) 1.6 % (0.0-4.0); Hematocrit 42.2 % (39.0-51.0); Hemoglobin 14.8 gm/dL (13.0-17.0); Lymph # (Auto) 2.1 th/mm3 (1.0-4.8); Lymph % (Auto) 26.1 % (9.0-44.0); Mean Corpuscular HGB Conc 35.2 % (32.0-36.0); Mean Corpuscular Hemoglobin 31.1 pg (27.0-34.0); Mean Corpuscular Volume 88.4 fL (80.0-100.0); Mean Platelet Volume 8.1 fL (7.0-11.0); Mono # (Auto) 0.5 th/mm3 (0.0-0.9); Mono % (Auto) 6.6 % (0.0-8.0); Neut # (Auto) 5.2 th/mm3 (1.8-7.7); Neut % (Auto) 65.1 % (16.0-70.0); Platelet Count 175 th/mm3 (150-450); Red Blood Count 4.77 mil/mm3 (4.50-5.90); Red Cell Distribution Width 13.7 % (11.6-17.2)
[2018-06-14 20:32] LABS: Alanine Aminotransferase 91 U/L (12-78)
--- NOTE | 2018-06-14 20:35 | CT ---
EXAM DATE: 06/14/2018 8:31 PM EST AGE/SEX: 27 years / Male INDICATIONS: Altered mental status. History of traumatic brain injury. CLINICAL DATA: This is the patient's initial encounter. Patient reports that signs and symptoms have been present for 1 day and indicates a pain score of 0/10. MEDICAL/SURGICAL HISTORY: None. Craniotomy. AEROBICS TEACHER Shunt RADIATION DOSE: 44.17 CTDI (mGy) COMPARISON: [facility] [place], 02/08/2018. . TECHNIQUE: CT of the head without contrast. Using automated exposure control and adjustment of the mA and/or kV according to patient size, radiation dose was kept as low as reasonably achievable to ob tain optimal diagnostic quality images. DICOM format image data is available electronically for revi ew and comparison. FINDINGS: There is no evidence for intracranial hemorrhage, mass effect, mass lesions, edema, or extra-axial fl uid collections. The visualized bony structures appear intact. The ventricles are normal size for t he patient's age. There are no signs of acute infarction for technique. Again noted are post cranio nasreen changes on the left side with encephalomalacia in the left frontal parts of the temporal lobe an d not changed. Ventriculoperitoneal shunt is again seen with tip in midline and not changed. CONCLUSION: Stable chronic changes without acute hemorrhage or mass effect. Electronically signed by: Jena Vargas MD Board Certified Radiologist 06/14/2018 8:34 PM EST
[2018-06-14 20:40] LABS: Alkaline Phosphatase 47 U/L (45-117); Anion Gap 7 meq/L (5-15); Aspartate Aminotransferase 39 U/L (15-37); Blood Urea Nitrogen 10 mg/dL (7-18); Calcium 8.5 mg/dL (8.5-10.1); Carbon Dioxide 27.5 meq/L (21.0-32.0); Chloride 108 meq/L (98-107); Glomerular Filtration Rate 76 mL/min (>89); Glucose,Random 86 mg/dL (74-106); Lactate Dehydrogenase 244 U/L (87-241); Magnesium 2.2 mg/dL (1.5-2.5); Potassium 3.8 meq/L (3.5-5.1); Sodium 142 meq/L (136-145); Total Protein 7.6 g/dL (6.4-8.2)
[2018-06-14 20:50] LABS: Bilirubin,Urine Negative (Negative); Clarity,Urine Clear (Clear); Color,Urine Yellow (Yellw/Straw); Glucose,Urine (UA) Negative (Negative); Leukocyte Esterase,Urine Negative (Negative); Mucus,Urine Few /lpf (Occasional); Nitrite,Urine Negative (Negative); Specific Gravity,Urine 1.015 (1.002-1.035)
[2018-06-14 20:51] LABS: Urobilinogen,Urine 0.2 mg/dL (Less than 2)
--- NOTE | 2018-06-14 20:54 | XR ---
EXAM DATE: 06/14/2018 8:42 PM EST AGE/SEX: 27 years / Male INDICATIONS: Check patency of shunt, patient fell chest pain CLINICAL DATA: This is the patient's initial encounter. Patient reports that signs and symptoms have been present for 1 day and indicates a pain score of 0/10. MEDICAL/SURGICAL HISTORY: None. . Craniotomy. MORTGAGE MANAGER Shunt COMPARISON: [facility] [place], 02/08/2018. . FINDINGS: Ventriculoperitoneal shunt is present and there is one area in the right side of the neck that does n ot appear to be continuous and this area was intact on the prior exam. This may be artifactually crea deidre since it is only visualized on the frontal projection and on the lateral projection the shunt ronald ears intact. CONCLUSION: The MORTGAGE MANAGER shunt appears grossly intact and on the frontal projection there is apparent disco ntinuation of the shunt which is probably artifactually created since it appears intact on the latera l projection. Electronically signed by: Jena Vargas MD Board Certified Radiologist 06/14/2018 8:53 PM EST
[2018-06-14] MEDS ORDERED: Acetaminophen 325 MG Tablet PO ONE (21:56)
[2018-06-14] MEDS ORDERED: Bisacodyl 10 MG Supp RECTAL PRN (22:13)
--- NOTE | 2018-06-14 22:15 | P.HPIM ---
History of Present Illness Primary Care Physician: No Primary Care Physician History of Present Illness: This is a 27-year-old male with a PMH of TBI, Mood Disorder and Depression who was brought to the ER by mother for lethargy and weakness w/ recurrent falls. Pt unable to provide history due to TBI, history obtained from Mother at bedside. Per Mother, pt was ambulating w/ walker approx 2-3 months ago, but has had progressive decline in function, notes "not stepping right". Also reports increased lethargy. States he was started on Depakote and Abilify in Mar 2017 at [facility] for reasons unknown to her, and recently had Depakote and Abilify discontinued due to lethargy. Mother notes pt only on Trazodone at night. Denies fever, chills, nausea or vomiting. Mother also reports difficulty swallowing, "coughs every time he eats or drinks", in addition to intermittent SOB and wheezing. Pt does not follow w/ Neurology. On arrival, BP 135/86, HR 80, O2 sat 96% on RA, Afebrile. CBC unremarkable. Chemistry essentially unremarkable. Troponin negative. UA negative for UTI. CT Head with stable chronic changes without acute hemorrhage or mass-effect. Shunt Study with SHOE PATTERNMAKER shunt grossly intact, probably artifactual discontinuation of the shunt. - Diagnosis (1) Encephalopathy (2) TBI (traumatic brain injury) (3) Dysphagia (4) Weakness Review of Systems PAST FAMILY HISTORY: Reviewed. No h/o DM or CAD unobtainable due to mental condition PMFSH - History History Provided By: Patient, Family Member - Medical History Medical History: Medical History (Last Reviewed 06/14/18 @ 20:50 by TAINA Devi) Depression History of gastrostomy tube placement Mood disorder TBI (traumatic brain injury) - Surgical History Surgical History: Surgical History (Last Reviewed 06/14/18 @ 20:50 by TAINA Devi) Hx of craniotomy Hx of tracheostomy Hx of ventricular shunt - Tobacco History Second Hand Smoke Exposure: No Smoking Status: Never smoker - Alcohol History How Often Do You Have a Drink Containing Alcohol: Never - Substance Use History Substance History: No History of Abuse - Travel History Recent Travel in the [place] Within the Last 8 Weeks: No Recent Travel Out of the Country Within the Last 8 Weeks: No - Immunization History Tetanus Immunization: Unsure Medications and Allergies Active Medications: Active Medications Acetaminophen (Tylenol) 650 mg PO Q4H PRN PRN Reason: Temp > 100.4 Al Hydroxide/Mg Hydroxide (Milk Of Magnesia Liq) 30 ml PO Q12H PRN PRN Reason: Mild Constipation Bisacodyl (Dulcolax Supp) 10 mg RECTAL DAILY PRN PRN Reason: SEVERE CONSITIPATION Sodium Chloride (Ns Inj) 1,000 mls @ 100 mls/hr IV.CONT .Q10H ARABELLA Lactulose (Lactulose Liq) 30 ml PO DAILY PRN PRN Reason: SEVERE CONSITIPATION Lorazepam (Ativan Inj) 1 mg IV.PUSH Q5M PRN PRN Reason: SEIZURES Ondansetron HCl (Zofran Inj) 4 mg IV.PUSH Q6H PRN PRN Reason: NAUSEA OR VOMITING Senna/Docusate Sodium (Lorri-Colace) 1 tab PO BID ARABELLA Sennosides (Senokot) 17.2 mg PO Q12H PRN PRN Reason: Moderate Constipation Sodium Chloride (Ns Flush) 2 ml IV.FLUSH PRN PRN PRN Reason: FLUSH AFTER USING IV ACCESS Sodium Chloride (Ns Flush) 2 ml IV.FLUSH BID ARABELLA Sodium Chloride (Ns Flush) 2 ml IV.FLUSH PRN PRN PRN Reason: FLUSH AFTER USING IV ACCESS Allergies Allergy/AdvReac Type Severity Reaction Status Date / Time No Known Allergies Allergy Verified 06/14/18 19:23 Home Medications Medication Instructions Recorded Confirmed Type aripiprazole [Abilify] 10 mg PO DAILY 02/08/18 06/14/18 History buspirone 10 mg PO BID 02/08/18 06/14/18 History divalproex [Depakote] 1,000 mg PO HS 02/08/18 06/14/18 History trazodone 100 mg PO HS 02/08/18 06/14/18 History Exam Vital signs: Vital Signs 06/14/18 19:24 06/14/18 20:50 Temperature 98.7 F Pulse Rate 80 Respiratory Rate 20 Blood Pressure 135/86 Pulse Oximetry 96 98 Intake & Output 06/14/18 06/14/18 06/15/18 06:59 18:59 06:59 Weight 79.379 kg Narrative: PE: GENERAL: Young male in no acute distress. SKIN: Focused skin assessment warm and dry. HEENT: PERRLA, EOMI. No scleral icterus or conjunctival pallor. No lid lag or facial droop. CARDIOVASCULAR: Regular rate and rhythm. No obvious murmurs to auscultation. No chest tenderness to palpation. RESPIRATORY: No obvious rhonchi or wheezing. Clear to auscultation. Breath sounds equal bilaterally. GASTROINTESTINAL: Abdomen soft, non-tender, nondistended. BS normal. MUSCULOSKELETAL: Extremities without clubbing, cyanosis, or edema. No obvious deformities. NEUROLOGICAL: Awake, alert, answers questions, +TBI w/ some cognitive impairment. No new focal neurologic deficits. Moving both upper and lower extremities spontaneously. PSYCHIATRIC: Appropriate mood and affect. Insight and judgment normal. Results - Labs CBC & Chem 7: 06/14/18 20:00 06/14/18 20:00 Labs: Short CBC 06/14/18 Range/Units 20:00 WBC 8.0 (4.0-11.0) th/mm3 Hgb 14.8 (13.0-17.0) gm/dL Hct 42.2 (39.0-51.0) % Plt Count 175 (150-450) th/mm3 BMP 06/14/18 20:00 Sodium 142 Potassium 3.8 Chloride 108 H Carbon Dioxide 27.5 BUN 10 Creatinine 1.14 Calcium 8.5 Cardiac Enzymes 06/14/18 Range/Units 20:00 Troponin I Less than 0.02 L (0.02-0.05) ng/mL Liver Function 06/14/18 Range/Units 20:00 Total Bilirubin 0.7 (0.2-1.0) mg/dL AST 39 H (15-37) U/L ALT 91 H (12-78) U/L Alkaline Phosphatase 47 (45-117) U/L Albumin 4.0 (3.4-5.0) g/dL Urine 06/14/18 Range/Units 20:35 Urine Color Yellow (Yellw/Straw) Urine Clarity Clear (Clear) Urine pH 6.0 (5.0-8.5) Ur Specific [place] 1.015 (1.002-1.035) Urine Protein Negative (Neg-Trace) mg/dL Urine Glucose (UA) Negative (Negative) mg/dL - Imaging Impressions Head CT 06/14/18 19:51 CONCLUSION: Stable chronic changes without acute hemorrhage or mass effect. Shunt Study 06/14/18 19:54 CONCLUSION: The SHOE PATTERNMAKER shunt appears grossly intact and on the frontal projection there is apparent discontinuation of the shunt which is probably artifactually created since it appears intact on the lateral projection. Caprini VTE Risk Assessment Caprini VTE Risk Assessment: No/Low Risk (score <= 1) Caprini Risk Assessment Model: Point Value = 1 Point Value = 2 Point Value = 3 Point Value = 5 Age 41-60 Minor surgery BMI > 25 kg/m2 Swollen legs Varicose veins or History of unexplained or recurrent spontaneous Oral contraceptives or hormone replacement Sepsis (< 1 month) Serious lung disease, including pneumonia (< 1 month) Abnormal pulmonary function Acute myocardial infarction Congestive heart failure (< 1 month) History of inflammatory bowel disease Medical patient at bed rest Age 61-74 Arthroscopic surgery Major open surgery (> 45 min) Laparoscopic surgery (> 45 min) Malignancy Confined to bed (> 72 hours) Immobilizing plaster cast Central venous access Age >= 75 History of VTE Family history of VTE Factor V Leiden Prothrombin [id number] Lupus anticoagulant Anticardiolipin antibodies Elevated serum homocysteine Heparin-induced thrombocytopenia Other congenital or acquired thrombophilia Stroke (< 1 month) Elective arthroplasty Hip, pelvis, or leg fracture Acute spinal cord injury (< 1 month) Prophylaxis Regimen: Total Risk Factor Score Risk Level Prophylaxis Regimen 0-1 Low Early ambulation 2 Moderate Order ONE of the following: *Sequential Compression Device (SCD) *Heparin 5000 units SQ BID 3-4 Higher Order ONE of the following medications: *Heparin 5000 units SQ TID *Enoxaparin/Lovenox 40 mg SQ daily (WT < 150 kg, CrCl > 30 mL/min) *Enoxaparin/Lovenox 30 mg SQ daily (WT < 150 kg, CrCl > 10-29 mL/min) *Enoxaparin/Lovenox 30 mg SQ BID (WT < 150 kg, CrCl > 30 mL/min) AND/OR *Sequential Compression Device (SCD) 5 or more Highest Order ONE of the following medications: *Heparin 5000 units SQ TID (Preferred with Epidurals) *Enoxaparin/Lovenox 40 mg SQ daily (WT < 150 kg, CrCl > 30 mL/min) *Enoxaparin/Lovenox 30 mg SQ daily (WT < 150 kg, CrCl > 10-29 mL/min) *Enoxaparin/Lovenox 30 mg SQ BID (WT < 150 kg, CrCl > 30 mL/min) AND *Sequential Compression Device (SCD) Assessment and Plan - Assessment (1) Encephalopathy Code(s): G93.40 - Encephalopathy, unspecified Status: Acute (2) TBI (traumatic brain injury) Code(s): S06.9X9A - Unspecified intracranial injury with loss of consciousness of unspecified duration, initial encounter Status: Acute (3) Dysphagia Code(s): R13.10 - Dysphagia, unspecified Status: Acute (4) Weakness Code(s): R53.1 - Weakness Status: Acute - Plan A/P: 1. Encephalopathy: mother notes increased lethargy for 2-3 months, now progressively worse, off Depakote and Abilify x2 months w/ no improvement, possibly w/ subclinical seizure activity?, check EEG to eval for possible seizure, CT Head w/ no acute findings, U/a negative for UTI. Consult Neurology for further eval/intervention. 2. TBI: H/o TBI after 2011, s/p SHOE PATTERNMAKER Shunt placement, does not follow w/ Neuro or NxSx as outpatient, Shunt Series w/ SHOE PATTERNMAKER shunt appearing to be intact, monitor closely, Neuro checks, Seizure Precautions. 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 3. Dysphagia: Mother notes coughing after eating/drinking in addition to wheezing. Will keep NPO, Swallow Study, check CXR to eval for possible aspiration PNA. 4. Weakness: progressive weakness w/ recurrent falls per Mother, previously ambulating w/ walker 3mo ago, now unable to walk. PT for eval/tx. 5. DVT Prophylaxis: SCD/Teds 6. Social work for d/c planning as needed. 7. Case discussed w/ ER physician at length, labs/records/imaging reviewed by me.
[2018-06-14] MEDS ORDERED: Morphine Inj 4 MG/ML Vial IV.PUSH ONE (22:36)
--- NOTE | 2018-06-14 22:58 | XR ---
EXAM DATE: 06/14/2018 10:55 PM EST AGE/SEX: 27 years / Male INDICATIONS: Cough, congestion. CLINICAL DATA: This is the patient's initial encounter. Patient reports that signs and symptoms have been present for 2 weeks and indicates a pain score of 0/10. MEDICAL/SURGICAL HISTORY: . Traumatic brain injury. Craniotomy. Ventricular shunt. COMPARISON: synapse default, CHEST SINGLE AP, 04/20/2012. . FINDINGS: The lungs are clear without infiltrate, nodule, or mass. There is no appreciable pleural effusion for technique. Heart and mediastinum are unremarkable. CONCLUSION: No acute cardiopulmonary disease. Electronically signed by: Jena Vargas MD Board Certified Radiologist 06/14/2018 10:56 PM EST
[2018-06-15] MEDS: Sod Chloride 0.9% Inj 1,000 ML IV.CONT SCH ×3 (04:57→20:49)
[2018-06-15 07:35] LABS: Baso % (Auto) 0.5 % (0.0-2.0); Eos # (Auto) 0.3 th/mm3 (0.0-0.4); Eos % (Auto) 3.9 % (0.0-4.0); Hematocrit 42.4 % (39.0-51.0); Hemoglobin 14.6 gm/dL (13.0-17.0); Lymph # (Auto) 2.8 th/mm3 (1.0-4.8); Lymph % (Auto) 42.7 % (9.0-44.0); Mean Corpuscular HGB Conc 34.5 % (32.0-36.0); Mean Corpuscular Hemoglobin 31.4 pg (27.0-34.0); Mean Corpuscular Volume 90.9 fL (80.0-100.0); Mean Platelet Volume 8.4 fL (7.0-11.0); Mono # (Auto) 0.4 th/mm3 (0.0-0.9); Mono % (Auto) 6.4 % (0.0-8.0); Neut # (Auto) 3.1 th/mm3 (1.8-7.7); Neut % (Auto) 46.5 % (16.0-70.0); Platelet Count 178 th/mm3 (150-450); Red Blood Count 4.66 mil/mm3 (4.50-5.90); Red Cell Distribution Width 13.9 % (11.6-17.2); White Blood Count 6.7 th/mm3 (4.0-11.0)
[2018-06-15 08:02] LABS: Albumin 3.9 g/dL (3.4-5.0); Anion Gap 7 meq/L (5-15); Aspartate Aminotransferase 38 U/L (15-37); Blood Urea Nitrogen 7 mg/dL (7-18); Calcium 8.3 mg/dL (8.5-10.1); Carbon Dioxide 30.1 meq/L (21.0-32.0); Chloride 106 meq/L (98-107); Glomerular Filtration Rate 83 mL/min (>89); Glucose,Random 73 mg/dL (74-106); Potassium 3.3 meq/L (3.5-5.1); Sodium 143 meq/L (136-145)
[2018-06-15 08:05] LABS: Alanine Aminotransferase 89 U/L (12-78); Alkaline Phosphatase 45 U/L (45-117); Total Protein 7.2 g/dL (6.4-8.2)
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
--- NOTE | 2018-06-15 11:52 | ECG ---
Date Performed: 06/14/2018 Time Performed: 20:32:59 PTAGE: 27 years EKG: Sinus rhythm POSSIBLE RIGHT VENTRICULAR CONDUCTION DELAY BORDERLINE ECG Since the PREVIOUS TRACING , no significant change noted PREVIOUS TRACIN07/15/2017 18.22 DOCTOR: Wale Arreola Interpretating Date/Time 06/15/2018 11:51:33
[2018-06-15 13:42] LABS: Free T4 (Free Thyroxine) 0.8 ng/dL (0.76-1.46); Thyroid Stimulating Hormone 0.724 uIU/mL (0.358-3.740)
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
--- NOTE | 2018-06-15 13:44 | P.DCO ---
Diagnosis (1) Encephalopathy: Status: Acute (2) TBI (traumatic brain injury): Status: Acute Physical Therapy Order: Evaluate and treat Case Management Consult Case Management Consult-Home Health: Yes I have seen patient David Burks on 06/15/18. My clinical findings support the need for the requested home health care services because: Limited ability to care for self and High risk of falls I certify that my clinical findings support that this patient is homebound because: Impaired cognitive ability/safety and Unsafe to leave home unassisted _ (1) TBI (traumatic brain injury) Qualifiers: Encounter type: Loss of consciousness presence/duration:
[2018-06-15] MEDS: Senna/Docusate Sodium 8.6/50 MG Tablet PO SCH ×2 (13:52→20:47)
--- NOTE | 2018-06-15 14:32 | P.DCO ---
Diagnosis (1) Encephalopathy: Status: Acute (2) TBI (traumatic brain injury): Status: Acute Physical Therapy Order: Evaluate and treat Home Health Nursing Order: Nursing assessment with vital signs Case Management Consult Case Management Consult-Home Health: Yes I have seen patient David Burks on 06/15/18. My clinical findings support the need for the requested home health care services because: Limited ability to care for self and High risk of falls I certify that my clinical findings support that this patient is homebound because: Unsteady gait/balance _ (1) TBI (traumatic brain injury) Qualifiers: Encounter type: Loss of consciousness presence/duration:
--- NOTE | 2018-06-15 19:31 | MG ---
cc: Wale Loomis MD HISTORY OF PRESENT ILLNESS: A 27-year-old man weakness, recurrent falls, depression, left temporal craniotomy shunt, brain injury history. There is an attenuation on the right side compared to the left and some slight theta slowing and prominent what looks like a breach rhythm is seen on the left central and temporal head region. Some prominent beta rhythms are seen. Some very sharp waves are noted, but they almost look like motor artifact over the left mid temporal head region. No prolonged seizure activity is seen. Hyperventilation is not performed. Photic stimulation was performed without significant posterior driving. Some left frontotemporal slowing is seen to 4 Hz at epoch 90. IMPRESSION: I do not see any definite seizure activity, but there is a breach rhythm over the left hemisphere. Clinical correlation is needed. Wale Loomis MD DJM/sv , 07:14 PM , 07:19 PM
[2018-06-16] MEDS: Sod Chloride 0.9% Inj 1,000 ML IV.CONT SCH ×3 (06:31→23:55)
--- NOTE | 2018-06-16 08:01 | P.PNNEU ---
Subjective Active Medications: Active Medications Acetaminophen (Tylenol) 650 mg PO Q4H PRN PRN Reason: Temp > 100.4 Al Hydroxide/Mg Hydroxide (Milk Of Magnesia Liq) 30 ml PO Q12H PRN PRN Reason: Mild Constipation Albuterol (Duoneb Neb (Prn)) 1 ampul NEB Q4HR NEB PRN PRN Reason: SOB/WHEEZING Bisacodyl (Dulcolax Supp) 10 mg RECTAL DAILY PRN PRN Reason: SEVERE CONSITIPATION Sodium Chloride (Ns Inj) 1,000 mls @ 100 mls/hr IV.CONT .Q10H [facility] Last Admin: 06/16/18 06:31 Dose: Not Given Lactulose (Lactulose Liq) 30 ml PO DAILY PRN PRN Reason: SEVERE CONSITIPATION Lorazepam (Ativan Inj) 1 mg IV.PUSH Q5M PRN PRN Reason: SEIZURES Ondansetron HCl (Zofran Inj) 4 mg IV.PUSH Q6H PRN PRN Reason: NAUSEA OR VOMITING Senna/Docusate Sodium (Lorri-Colace) 1 tab PO BID [facility] Last Admin: 06/15/18 20:47 Dose: 1 tab Sennosides (Senokot) 17.2 mg PO Q12H PRN PRN Reason: Moderate Constipation Sodium Chloride (Ns Flush) 2 ml IV.FLUSH BID [facility] Last Admin: 06/15/18 20:48 Dose: 2 ml Sodium Chloride (Ns Flush) 2 ml IV.FLUSH PRN PRN PRN Reason: FLUSH AFTER USING IV ACCESS Allergies/Adverse Reactions: Allergies Allergy/AdvReac Type Severity Reaction Status Date / Time No Known Allergies Allergy Verified 06/14/18 19:23 Physical Exam Vital signs: Vital Signs 06/15/18 08:00 06/15/18 08:21 06/15/18 16:00 Temperature 98.8 F 98 F Pulse Rate 88 76 71 Respiratory Rate 16 16 Blood Pressure 127/90 Pulse Oximetry 96 95 06/15/18 17:03 06/15/18 20:00 06/15/18 23:15 Temperature 98.1 F 98.7 F Pulse Rate 86 80 Respiratory Rate 18 16 Blood Pressure 127/82 135/91 H 115/73 Pulse Oximetry 96 97 06/15/18 23:17 06/15/18 23:19 06/16/18 03:07 Temperature 97.9 F Pulse Rate 88 89 92 H Respiratory Rate 18 Blood Pressure 134/82 142/86 H 129/88 Pulse Oximetry 94 L Intake & Output 06/15/18 06/16/18 06/16/18 18:59 06:59 18:59 Intake Total 1220 / 1220 Output Total 1700 / 1700 550 / 550 Balance -1700 / -1700 670 / 670 Weight 111.5 kg 109.4 kg Intake: IV 500 / 500 NS Inj 1,000 ML @ 100 mls/hr IV 500 / 500 .CONT .Q10H [facility] Rx#:[id number] Oral 720 / 720 Output: Urine 1700 / 1700 550 / 550 Other: Date of Last Bowel Movement 06/15/18 # Bowel Movements 1 Narrative: gait unsteady did not sleep well Objective Laboratory Results - last 24 hr 06/15/18 06/15/18 06/15/18 04:49 12:41 12:41 ESR 6 Sodium 143 Potassium 3.3 L Chloride 106 Carbon Dioxide 30.1 Anion Gap 7 BUN 7 Creatinine 1.06 Estimated GFR 83 L Random Glucose 73 L Calcium 8.3 L Total Bilirubin 0.9 AST 38 H ALT 89 H Alkaline Phosphatase 45 Total Protein 7.2 Albumin 3.9 Vitamin B12 382 TSH 0.724 Free T4 0.80 Review/Management - Review/Management Plan: imimp gait is very unsteady major fall risk standing bp hallpike and labs ok will ask martha if shunt too low as vents slits mom to call me eeg neg sz
[2018-06-16 08:03] LABS: Magnesium 2.3 mg/dL (1.5-2.5)
[2018-06-16] MEDS: Senna/Docusate Sodium 8.6/50 MG Tablet PO SCH ×2 (10:31→21:09)
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
--- NOTE | 2018-06-16 17:17 | P.CONNS ---
History of Present Illness Primary Care Provider: No Primary Care Physician History of Present Illness: This is a 27-year-old male with history of a severe traumatic brain injurya, Mood Disorder and Depression who was brought to the ER by mother for lethargy and weakness w/ recurrent falls. Pt unable to provide history due to TBI, history obtained from Mother at bedside. Per Mother, pt was ambulating w/ walker approx 2-3 months ago, but has had progressive decline in function, notes "not stepping right". Also reports increased lethargy. He was started on Depakote and Abilify in Mar 2017 at [facility] for reasons unknown to her, and recently had Depakote and Abilify discontinued due to lethargy. Mother notes pt only on Trazodone at night. Denies fever, chills , nausea or vomiting. Mother also reports difficulty swallowing, "coughs every time he eats or drinks", in addition to intermittent SOB and wheezing. Pt does not follow w/ Neurology. Negative for UTI. CT Head with stable chronic changes without acute hemorrhage or mass-effect. Shunt Study with HEAD OF MOBILE shunt grossly intact. Neurosurgery consultation was requested His family history was reviewed and non contributory Review of Systems All other systems reviewed negative except as stated in HPI PMFSH - History History Provided By: Patient, Family Member - Medical History Medical History: Medical History (Last Reviewed 06/16/18 @ 17:11 by Foster Gomes MD) Depression History of gastrostomy tube placement Mood disorder TBI (traumatic brain injury) - Surgical History Surgical History: Surgical History (Last Reviewed 06/16/18 @ 17:11 by Foster Gomes MD) Hx of craniotomy Hx of tracheostomy Hx of ventricular shunt - Tobacco History Second Hand Smoke Exposure: No Smoking Status: Never smoker - Alcohol History How Often Do You Have a Drink Containing Alcohol: Never - Substance Use History Substance History: No History of Abuse - Travel History Recent Travel in the [place] Within the Last 8 Weeks: No Recent Travel Out of the Country Within the Last 8 Weeks: No - Immunization History Tetanus Immunization: Unsure Medications and Allergies Active Medications: Active Medications Acetaminophen (Tylenol) 650 mg PO Q4H PRN PRN Reason: Temp > 100.4 Al Hydroxide/Mg Hydroxide (Milk Of Magnesia Liq) 30 ml PO Q12H PRN PRN Reason: Mild Constipation Albuterol (Duoneb Neb (Prn)) 1 ampul NEB Q4HR NEB PRN PRN Reason: SOB/WHEEZING Bisacodyl (Dulcolax Supp) 10 mg RECTAL DAILY PRN PRN Reason: SEVERE CONSITIPATION Sodium Chloride (Ns Inj) 1,000 mls @ 100 mls/hr IV.CONT .Q10H [facility] Last Admin: 06/16/18 06:31 Dose: Not Given Lactulose (Lactulose Liq) 30 ml PO DAILY PRN PRN Reason: SEVERE CONSITIPATION Lorazepam (Ativan Inj) 1 mg IV.PUSH Q5M PRN PRN Reason: SEIZURES Ondansetron HCl (Zofran Inj) 4 mg IV.PUSH Q6H PRN PRN Reason: NAUSEA OR VOMITING Senna/Docusate Sodium (Lorri-Colace) 1 tab PO BID [facility] Last Admin: 06/16/18 10:31 Dose: 1 tab Sennosides (Senokot) 17.2 mg PO Q12H PRN PRN Reason: Moderate Constipation Sodium Chloride (Ns Flush) 2 ml IV.FLUSH BID [facility] Last Admin: 06/16/18 10:30 Dose: 2 ml Sodium Chloride (Ns Flush) 2 ml IV.FLUSH PRN PRN PRN Reason: FLUSH AFTER USING IV ACCESS Allergies Allergy/AdvReac Type Severity Reaction Status Date / Time No Known Allergies Allergy Verified 06/14/18 19:23 Home Medications Medication Instructions Recorded Confirmed Type aripiprazole [Abilify] 10 mg PO DAILY 02/08/18 06/14/18 History buspirone 10 mg PO BID 02/08/18 06/14/18 History divalproex [Depakote] 1,000 mg PO HS 02/08/18 06/14/18 History trazodone 100 mg PO 02/08/18 06/14/18 History Exam Vital signs: Vital Signs 06/15/18 20:00 06/15/18 23:15 06/15/18 23:17 Temperature 98.1 F 98.7 F Pulse Rate 86 80 88 Respiratory Rate 18 16 Blood Pressure 135/91 H 115/73 134/82 Pulse Oximetry 96 97 06/15/18 23:19 06/16/18 03:07 06/16/18 08:00 Temperature 97.9 F 98.6 F Pulse Rate 89 92 H 98 H Respiratory Rate 18 16 Blood Pressure 142/86 H 129/88 123/86 Pulse Oximetry 94 L 95 06/16/18 12:00 Temperature 99.5 F Pulse Rate 69 Respiratory Rate 16 Blood Pressure 137/82 Pulse Oximetry 95 Intake & Output 06/15/18 06/16/18 06/16/18 18:59 06:59 18:59 Intake Total 1220 / 1220 Output Total 1700 / 1700 550 / 550 Balance -1700 / -1700 670 / 670 Weight 111.5 kg 109.4 kg Intake: IV 500 / 500 NS Inj 1,000 ML @ 100 mls/hr IV 500 / 500 .CONT .Q10H [facility] Rx#:[id number] Oral 720 / 720 Output: Urine 1700 / 1700 550 / 550 Other: Date of Last Bowel Movement 06/15/18 06/15/18 # Bowel Movements 1 Narrative: PE: GENERAL: Young male in no acute distress. SKIN: Focused skin assessment warm and dry. HEENT: PERRLA, EOMI. No scleral icterus or conjunctival pallor. No lid lag or facial droop. CARDIOVASCULAR: Regular rate and rhythm. No obvious murmurs to auscultation. No chest tenderness to palpation. RESPIRATORY: No obvious rhonchi or wheezing. Clear to auscultation. Breath sounds equal bilaterally. GASTROINTESTINAL: Abdomen soft, non-tender, nondistended. BS normal. MUSCULOSKELETAL: Extremities without clubbing, cyanosis, or edema. No obvious deformities. NEUROLOGICAL: Awake, alert, answers questions, +TBI w/ some cognitive impairment. No new focal neurologic deficits. Moving both upper and lower extremities spontaneously. PSYCHIATRIC: Appropriate mood and affect. Insight and judgment normal. Results - Laboratory Findings CBC and BMP: 06/15/18 04:49 06/15/18 04:49 Abnormal lab findings: Abnormal Labs 06/14/18 06/14/18 06/15/18 20:00 20:35 04:49 Potassium 3.3 L Chloride 108 H Estimated GFR 76 L 83 L Random Glucose 73 L Calcium 8.3 L AST 39 H 38 H ALT 91 H 89 H Lactate Dehydrogenase 244 H Troponin I Less than 0.02 L Urine Ketones Trace H Urine Mucus Few H Valproic Acid 06/16/18 06:51 Potassium Chloride Estimated GFR Random Glucose Calcium AST ALT Lactate Dehydrogenase Troponin I Urine Ketones Urine Mucus Valproic Acid 8 L Assessment and Plan - Plan (1) Encephalopathy Code(s): G93.40 - Encephalopathy, unspecified Status: Acute (2) TBI (traumatic brain injury) Code(s): S06.9X9A - Unspecified intracranial injury with loss of consciousness of unspecified duration, initial encounter Status: Acute (3) Dysphagia Code(s): R13.10 - Dysphagia, unspecified Status: Acute (4) Weakness Code(s): R53.1 - Weakness Status: Acute - Plan A/P: Encephalopathy: mother notes increased lethargy for 2-3 months, now progressively worse, off Depakote and Abilify x2 months w/ no improvement. EEG to rule out subclinical seizure activity, check EEG to evaluation for possible seizure, CT Head w/ no acute findings, U/a negative for UTI. Consult Neurology for further evaluation and intervention. TBI: H/o TBI after 2011, s/p HEAD OF MOBILE Shunt placement. I suspect the possibility of shunt overdrainagwe causing symptoms. Seizure Precautions. Will reprogram shunt to a higher setting to drain less CSF Dysphagia: Mother notes coughing after eating/drinking in addition to wheezing. Will keep NPO, Swallow Study, check CXR to eval for possible aspiration pneumonia. Weakness: progressive weakness w/ recurrent falls per Mother, previously ambulating w/ walker 3mo ago, now unable to walk. PT for eval/tx. Pulmonary: aggressive pulmonary toilette, nasotracheal suction, and breathing treatments with nebulizers. Daily PT and OT Renal: Continue to monitor closely urine output, BUN and creatinine Endocrine: Continue to Monitor serial Acu checks and SSI as needed in detail ID continue to monitor for signs of infection Continue Protonix for stress ulcer prophylaxis Continue Frank hose and SCD's for DVT prophylaxis Further recommendations will be provided depending on the patient's clinical evaluation and follow up studies.
[2018-06-16] MEDS: Acetaminophen 325 MG Tablet PO PRN (21:02)
[2018-06-16] MEDS ORDERED: Morphine Inj 4 MG/ML Vial IV.PUSH ONE (23:07)
--- NOTE | 2018-06-17 07:53 | P.PNNEU ---
Subjective Active Medications: Active Medications Acetaminophen (Tylenol) 650 mg PO Q4H PRN PRN Reason: Temp > 100.4 Last Admin: 06/16/18 21:02 Dose: 650 mg Al Hydroxide/Mg Hydroxide (Milk Of Magnesia Liq) 30 ml PO Q12H PRN PRN Reason: Mild Constipation Albuterol (Duoneb Neb (Prn)) 1 ampul NEB Q4HR NEB PRN PRN Reason: SOB/WHEEZING Bisacodyl (Dulcolax Supp) 10 mg RECTAL DAILY PRN PRN Reason: SEVERE CONSITIPATION Sodium Chloride (Ns Inj) 1,000 mls @ 100 mls/hr IV.CONT .Q10H [facility] Last Admin: 06/16/18 23:55 Dose: Not Given Lactulose (Lactulose Liq) 30 ml PO DAILY PRN PRN Reason: SEVERE CONSITIPATION Lorazepam (Ativan Inj) 1 mg IV.PUSH Q5M PRN PRN Reason: SEIZURES Ondansetron HCl (Zofran Inj) 4 mg IV.PUSH Q6H PRN PRN Reason: NAUSEA OR VOMITING Senna/Docusate Sodium (Lorri-Colace) 1 tab PO BID [facility] Last Admin: 06/16/18 21:09 Dose: Not Given Sennosides (Senokot) 17.2 mg PO Q12H PRN PRN Reason: Moderate Constipation Sodium Chloride (Ns Flush) 2 ml IV.FLUSH BID [facility] Last Admin: 06/16/18 21:09 Dose: 2 ml Sodium Chloride (Ns Flush) 2 ml IV.FLUSH PRN PRN PRN Reason: FLUSH AFTER USING IV ACCESS Last Admin: 06/16/18 23:29 Dose: 2 ml Allergies/Adverse Reactions: Allergies Allergy/AdvReac Type Severity Reaction Status Date / Time No Known Allergies Allergy Verified 06/14/18 19:23 Physical Exam Vital signs: Vital Signs 06/16/18 08:00 06/16/18 12:00 06/16/18 16:00 Temperature 98.6 F 99.5 F 98.8 F Pulse Rate 98 H 69 104 H Respiratory Rate 16 16 16 Blood Pressure 123/86 137/82 132/97 H Pulse Oximetry 95 95 94 L 06/16/18 19:56 06/16/18 23:22 06/17/18 03:52 Temperature 100.3 F H 99.1 F 98.8 F Pulse Rate 94 H 96 H 78 Respiratory Rate Blood Pressure 142/85 H 117/85 133/87 Pulse Oximetry 94 L 97 96 Intake & Output 06/16/18 06/17/18 06/17/18 18:59 06:59 18:59 Intake Total 1320 / 1320 640 / 640 Balance 1320 / 1320 640 / 640 Intake: Oral 1320 / 1320 640 / 640 Other: # Voids 5 2 Date of Last Bowel Movement 06/16/18 06/16/18 # Bowel Movements 2 2 Narrative: seems a little steadier on feet this am Objective Laboratory Results - last 24 hr 06/15/18 06/16/18 12:41 06:51 Magnesium 2.3 Valproic Acid 8 L RPR Nonreactive Review/Management - Review/Management Plan: imimp gait is very unsteady major fall risk standing bp hallpike and labs ok will ask martha if shunt too low as vents slits mom to call me eeg neg sz 06/17/18 maybe walking a little better after shunt adjusted higher pressure ct c spine neg 07/18 ok to dc and i could fu him in office \will sign off
[2018-06-17] MEDS: Senna/Docusate Sodium 8.6/50 MG Tablet PO SCH ×2 (09:49→21:17)
[2018-06-17 10:04] LABS: Baso % (Auto) 0.5 % (0.0-2.0); Eos # (Auto) 0.3 th/mm3 (0.0-0.4); Hematocrit 44.2 % (39.0-51.0); Hemoglobin 15.2 gm/dL (13.0-17.0); Lymph # (Auto) 1.8 th/mm3 (1.0-4.8); Lymph % (Auto) 26.2 % (9.0-44.0); Mean Corpuscular HGB Conc 34.4 % (32.0-36.0); Mean Corpuscular Volume 90.1 fL (80.0-100.0); Mean Platelet Volume 7.9 fL (7.0-11.0); Mono # (Auto) 0.7 th/mm3 (0.0-0.9); Mono % (Auto) 9.9 % (0.0-8.0); Neut # (Auto) 4.2 th/mm3 (1.8-7.7); Neut % (Auto) 59.4 % (16.0-70.0); Platelet Count 172 th/mm3 (150-450)
[2018-06-17 10:19] LABS: Alanine Aminotransferase 80 U/L (12-78); Albumin 4.1 g/dL (3.4-5.0); Anion Gap 5 meq/L (5-15); Aspartate Aminotransferase 29 U/L (15-37); Blood Urea Nitrogen 10 mg/dL (7-18); Calcium 8.6 mg/dL (8.5-10.1); Carbon Dioxide 31.4 meq/L (21.0-32.0); Chloride 104 meq/L (98-107); Glomerular Filtration Rate 86 mL/min (>89); Glucose,Random 100 mg/dL (74-106); Potassium 3.6 meq/L (3.5-5.1); Sodium 140 meq/L (136-145)
[2018-06-17 10:22] LABS: Alkaline Phosphatase 49 U/L (45-117); Total Protein 7.6 g/dL (6.4-8.2)
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
[2018-06-17] MEDS: Sod Chloride 0.9% Inj 1,000 ML IV.CONT SCH ×2 (13:25→20:59)
[2018-06-17] MEDS: Acetaminophen 325 MG Tablet PO PRN ×2 (17:32→20:20)
[2018-06-17] MEDS ORDERED: Divalproex 500 MG DR Tablet PO SCH (21:00)
[2018-06-17] MEDS ORDERED: Ibuprofen 400 MG Tablet PO ONE (21:30)
[2018-06-18] MEDS: Sod Chloride 0.9% Inj 1,000 ML IV.CONT SCH ×2 (06:06→16:25)
[2018-06-18] MEDS: Senna/Docusate Sodium 8.6/50 MG Tablet PO SCH ×2 (08:32→20:08)
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
[2018-06-18] MEDS: Acetaminophen 325 MG Tablet PO PRN (20:12)
[2018-06-19] MEDS: Sod Chloride 0.9% Inj 1,000 ML IV.CONT SCH ×2 (02:11→13:22)
[2018-06-19] MEDS: Senna/Docusate Sodium 8.6/50 MG Tablet PO SCH ×2 (08:32→20:51)
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
--- NOTE | 2018-06-19 08:56 | P.DS ---
DS: Providers Date of admission: 06/14/18 22:12 Primary care physician: No Primary Care Physician Consults: 06/14/18 22:12 Consult to Neurology Routine Consulting Provider: Wale Lazaro Reason for Consultation: AMS, h/o TBI, Seizure Disorder CONSULT FOR AM Notified:: Service Spoke with:: MARIELA Date Notified:: 06/14/18 Time Notified:: 22:55 Ordering Provider: NIKITA 06/16/18 07:59 Consult to Neurosurgery Routine Consulting Provider: Foster Gomes Test Lead Application Testing:: Foster Gomes Reason for Consultation: pressure shunt too low? Notified:: Service Spoke with:: Gita Date Notified:: 06/16/18 Time Notified:: 08:08 Ordering Provider: TERRY 06/17/18 16:18 Consult to Psychiatry Routine Consulting Provider: Theron Greene Reason for Consultation: hx ? schizophrenia? mood disorder plz call mom [phone] about him Notified:: Office Spoke with:: Krista Date Notified:: 06/17/18 Time Notified:: 16:22 Ordering Provider: TERRY Brief History from admission: This is a 27-year-old male with a PMH of TBI, Mood Disorder and Depression who was brought to the ER by mother for lethargy and weakness w/ recurrent falls. Pt unable to provide history due to TBI, history obtained from Mother at bedside. Per Mother, pt was ambulating w/ walker approx 2-3 months ago, but has had progressive decline in function, notes "not stepping right". Also reports increased lethargy. States he was started on Depakote and Abilify in Mar 2017 at [facility] for reasons unknown to her, and recently had Depakote and Abilify discontinued due to lethargy. Mother notes pt only on Trazodone at night. Denies fever, chills, nausea or vomiting. Mother also reports difficulty swallowing, "coughs every time he eats or drinks", in addition to intermittent SOB and wheezing. Pt does not follow w/ Neurology. On arrival, BP 135/86, HR 80, O2 sat 96% on RA, Afebrile. CBC unremarkable. Chemistry essentially unremarkable. Troponin negative. UA negative for UTI. CT Head with stable chronic changes without acute hemorrhage or mass-effect. Shunt Study with PET NUTRITION SPECIALIST shunt grossly intact, probably artifactual discontinuation of the shunt. DS: Diagnosis Discharge Diagnosis (1) Major neurocognitive disorder due to traumatic brain injury: Status: Acute DS: Summary acute encephalopathy- seems to be improving. -Shunt study unremarkable, CT head negative, UA negative, B12 within normal limits, -Neurosurgery consultation per neurology, neurology follow-up appreciated and cleared for discharge. Appears to be improving. continue PT/OT. psych consult appreciated. Low-grade fever two days ago; this has resolved with no recurrence. TBI: -H/o TBI after [facility] 2011, s/p PET NUTRITION SPECIALIST Shunt placement, does not follow w/ Neuro or NxSx as outpatient, Shunt Series w/ PET NUTRITION SPECIALIST shunt appearing to be intact Dysphagia -Chest x-ray negative recently, mechanical soft honey thickened liquids per speech therapy Weakness - gen weakness, PT/OT DVT Prophylaxis: SCD/Teds Time Spent with Patient Total time spent providing and/or coordinating discharge services: Less than 30 minutes Exam Narrative Exam Narrative: in no acute distress. much more awake and alert today. on lung exam, bilateral air entry present. abdomen is soft. no pedal edema. Results Procedures completed during hospitalization: none Impressions ITS Impressions Chest X-Ray 06/14/18 00:00 CONCLUSION: No acute cardiopulmonary disease. Head CT 06/14/18 19:51 CONCLUSION: Stable chronic changes without acute hemorrhage or mass effect. Shunt Study 06/14/18 19:54 CONCLUSION: The PET NUTRITION SPECIALIST shunt appears grossly intact and on the frontal projection there is apparent discontinuation of the shunt which is probably artifactually created since it appears intact on the lateral projection. Discharge Plan Discharge Disposition Patient Disposition: W/Home Health Service Discharge Order Discharge Orders: Discharge Order (Routine); Ordered 06/19/18 Ordered By: Mayur Serrano Physicians Team Primary Care Provider: Primary Care Physici,Pepper Attending Provider: Mayur Serrano Other Providers: Wale Lazaro ; Foster Gomes ; Theron Greene Rxs /Orders / Referrals /Forms Prescriptions: Continue divalproex [Depakote] 500 mg Tablet,Delayed Release (Dr/Ec) 1,000 mg PO HS RF: 0 trazodone 100 mg Tablet 100 mg PO HS RF: 0 Discontinued buspirone 10 mg Tablet 10 mg PO BID RF: 0 aripiprazole [Abilify] 10 mg Tablet 10 mg PO DAILY RF: 0 Ambulatory Orders / Order Sets / DME: Walker With Front Wheels (1 each) (Routine) Location: Determined by Patient Ordered By: Mayur Serrano Referrals: Primary Care Pepper Marks [Primary Care Provider] - See Instructions Discharge Instructions Patient Printed Instructions: Trazodone (By mouth), Divalproex (By mouth) Status ED Status: Left Department
[2018-06-19] MEDS: Acetaminophen 325 MG Tablet PO PRN (20:50)
[2018-06-20] MEDS: Senna/Docusate Sodium 8.6/50 MG Tablet PO SCH ×2 (09:22→21:50)
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
[2018-06-21] MEDS: Senna/Docusate Sodium 8.6/50 MG Tablet PO SCH ×2 (08:31→20:06)
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
[2018-06-21] MEDS: Acetaminophen 325 MG Tablet PO PRN (22:01)
[2018-06-22] MEDS: Acetaminophen 325 MG Tablet PO PRN (06:16)
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
[2018-06-22] MEDS: Senna/Docusate Sodium 8.6/50 MG Tablet PO SCH ×2 (11:51→21:07)
[2018-06-23 09:27] VITALS: RESP 18; O2SAT 96
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
[2018-06-23 14:39] VITALS: BP 129/84; PULSE 70; TEMP 99
[2018-06-23] MEDS: Senna/Docusate Sodium 8.6/50 MG Tablet PO SCH (14:57)
[2018-06-23] MEDS: Acetaminophen 325 MG Tablet PO PRN (15:15)
== END 2018-06-23 15:35 | disposition home health service (06) ==
LOC: NEPD 19:03 → NEDA 19:03 → HCIN 06-15 02:18 → N04 06-17 23:59
PROVIDERS: ADMIT Internal Medicine; ATTEND Internal Medicine
CPT/HCPCS: 70250; 70450; 71010; 71045; 72040; 74000; 74018; 80053; 80164; 81001; 82247; 82248; 82607; 83615; 83735; 83918; 83921; 84439; 84443; 84484; 85025; 85651; 85652; 86592; 92526; 92610; 93005; 95819; 96361; 96374; 96376; 97110; 97116; 97162; 97167; 97530; 97535; 99285; G0195; G0378; G8987; G8988; G8996; G8997; G8998; J2270; J7030